=== PATIENT | female | born 1965 | race Caucasian/White ===

== ENCOUNTER 2021-11-04 21:15 | Emergency (ER) | payer OTHER, SELFPAY ==
[2021-11-04 21:22] VITALS: BP 163/95; PULSE 76; RESP 16; TEMP 36.4; O2SAT 96
--- NOTE | 2021-11-04 21:36 | ED.DENTAL ---
HPI - Dental/Oral General Chief complaint: Dental/Oral Stated complaint: dental abscess Time Seen by Provider: 11/04/21 21:24 History of Present Illness HPI Narrative: 56-year-old female presents emergency room complaining of left lower molar and canine dental tenderness. Pain is associated with perimandibular swelling. States the dental pain has been present for about a week. Does not have a dentist. Denies fever. Denies difficulty swallowing or difficulty breathing. Related Data Allergies Allergy/AdvReac Type Severity Reaction Status Date / Time No Known Allergies Allergy Mild Verified 04/30/09 14:13 Review of Systems Review of Systems: CONSTITUTIONAL: Denies fever, chills, or sweats. EYES: Denies visual changes, redness, or discharge. ENT: Reports dental pain CARDIOVASCULAR: Denies chest pain, palpitations, or edema. RESPIRATORY: Denies cough or dyspnea. GASTROINTESTINAL: Denies abdominal pain, nausea, vomiting, or diarrhea. GENITOURINARY: Denies dysuria or hematuria. SKIN: Denies rash or itching. MUSCULOSKELETAL: Denies back pain, joint pain, or myalgia. NEUROLOGIC: Denies headache, numbness, dizziness, or weakness. PSYCHIATRIC: Denies anxiety or depression. Course Course Emergency Course: GENERAL: Well-appearing, well-nourished, no physical limitations, and in no acute distress. HEAD: Normocephalic, atraumatic. EYES: Conjunctivae normal, PERRLA and EOMI. ENT: Tenderness to the left first molar and canine. Extensive periodontal disease and cavities. Perimandibular swelling left side. No trismus NECK: Supple. No adenopathy or masses. CHEST: Clear to auscultation. No respiratory distress. No wheezes rales or rhonchi. No tenderness. HEART: Regular rate and rhythm. No murmur heard. Normal peripheral pulses. EXTREMITIES: Normal range of motion. No edema. No clubbing or cyanosis SKIN: Warm, dry, no rash. No noted wounds NEURO: No focal deficits. Alert and oriented x3. MAEW. CN's II-XI intact bilaterally, normal gait PSYCH: Cooperative. Normal mood and affect. Vital Signs Vital signs: Vital Signs Temperature 36.4 C 11/04/21 21:22 Pulse Rate 76 11/04/21 21:22 Respiratory Rate 16 11/04/21 21:22 Blood Pressure 163/95 H 09/18/22 21:22 Pulse Oximetry 96 11/04/21 21:22 Oxygen Delivery Room Air 11/04/21 21:22 Temperature 36.4 C 11/04/21 21:22 Pulse Rate 76 11/04/21 21:22 Respiratory Rate 16 11/04/21 21:22 Blood Pressure 163/95 H 11/04/21 21:22 Pulse Oximetry 96 11/04/21 21:22 Oxygen Delivery Room Air 11/04/21 21:22 Procedures Nerve Block Nerve Block 1: Nerve block date: 11/04/21 Nerve block time: 22:02 Time out performed: Yes Local Anesthetic: bupivacaine 0.25% and with epi Amount of anesthesia used (mL): 3 Side: left Intraoral Nerve Block: inferior alveolar Procedure Successful: Yes Patient Tolerated Procedure: well Complications: none Discharge Plan Discharge Clinical Impression: Dental abscess, Toothache Patient Disposition: Home, Self-Care Condition: Stable Instructions: Antibiotic Form, Toothache (ED) Prescriptions: New amoxicillin-pot clavulanate 875-125 mg tablet 1 tablet PO Q12H 7 Days Qty: 14 0RF ibuprofen 800 mg tablet 800 mg PO TID Qty: 20 0RF Follow-up/Referrals: PHYSICIAN NOT ON STAFF,NONSTAFF [Primary Care Provider] - Stand Alone Forms: Work/School Release IP Time of Disposition: 21:39
[2021-11-04] MEDS: AMOXICILLIN/CLAVULANATE K 875-125 MG TAB 1 TABLET PO (21:37)
[2021-11-04 22:37] VITALS: BP 132/80; PULSE 86; RESP 16; TEMP 36.3; O2SAT 100
== END 2021-11-04 22:39 | disposition home or self-care (01) ==
LOC: ANHED 21:53
PROVIDERS: Emergency Provider Nurse Practitioner Family
DX: K04.7 Periapical abscess without sinus (principal)
CPT/HCPCS: 64999; 99283; A9270

== ENCOUNTER 2022-05-23 06:23 | Emergency (ER) | payer OTHER, SELFPAY ==
--- NOTE | ~2022-05-23 | XR_ITS ---
EXAMINATION: XR chest 2V DATE: 05/23/2022 10:02 INDICATION: Shortness of breath. Cough. TECHNIQUE: Frontal and lateral views of the chest were obtained. COMPARISON: None. FINDINGS: There are lucencies in the lungs, consistent with emphysema. No pneumonia, pleural effusion , or pneumothorax. The heart size is normal. IMPRESSION: 1. Emphysema. Reviewed, dictated and finalized at location A. IMPRESSION: 1. Emphysema.
[2022-05-23 06:26] VITALS: BP 176/88; PULSE 83; RESP 20; TEMP 36.9; O2SAT 96
--- NOTE | 2022-05-23 08:01 | ED.GENADULT ---
HPI - General Adult General Chief complaint: Upper Respiratory Infection Stated complaint: upper resp infection Time Seen by Provider: 05/23/22 06:55 History of Present Illness HPI narrative: 67-year-old female presenting to the emergency department for evaluation of flulike symptoms that have been ongoing since Friday. Patient denies cough congestion and fever. Patient states she is not vaccinated against COVID or influenza. Patient suspected she had the flu. Patient denies any associated chest pain Related Data Allergies Allergy/AdvReac Type Severity Reaction Status Date / Time No Known Allergies Allergy Mild Verified 05/23/22 08:40 Review of Systems Review of Systems: All systems reviewed & are unremarkable except as noted in HPI and below Exam Narrative: APPEARANCE: Well appearing, no pain, no distress, well-nourished. HEAD: normocephalic, atraumatic. EYES: PERRLA/EOMI, conjunctivae clear. NOSE: Normal no drainage EARS:TMS clear with good light reflex. THROAT: Pharynx clear, no exudate. NECK: Supple. No adenopathy, no masses. RESPIRATORY: Airway patent, respirations nonlabored. Clear to auscultation bilaterally, no rales, rhonchi, wheezing. CARDIOVASCULAR: Regular rate and rhythm without murmurs rubs or gallops. ABDOMINAL: Soft, nontender, nondistended, normal bowel sounds MUSCULOSKELETAL: Moves all extremities. Strength/ROM intact, No edema, No calf tenderness. NEURO: Alert. Cranial nerves II through XII intact. SKIN: Warm, dry. Normal Color Course Course Emergency Course: 57-year-old female presenting for evaluation of cough. Patient was negative for influenza flu and COVID. Chest x-ray showed no evidence of any acute bacterial infection. Patient's lungs were clear to auscultation. Patient does have history of emphysema and does continue to smoke. Patient's symptoms only started 2 days ago. Suspect viral etiology. Patient was updated on the plan to not treat her with antibiotics. Patient was provided a prescription for additional albuterol inhaler along with a prescription for Tessalon Perles for cough suppression. All questions and concerns were addressed. Patient was comfortable with the plan for discharge and close follow-up. Patient was also educated on reasons to return to the emergency department and also on the importance of close follow-up with her primary care physician Vital Signs Vital signs: Vital Signs Temperature 98.5 F 05/23/22 06:26 Pulse Rate 83 05/23/22 06:26 Respiratory Rate 20 05/23/22 06:26 Blood Pressure 176/88 H 05/23/22 06:26 Pulse Oximetry 96 05/23/22 06:26 Temperature 98.5 F 05/23/22 06:26 Pulse Rate 83 05/23/22 06:26 Respiratory Rate 20 05/23/22 06:26 Blood Pressure 176/88 H 05/23/22 06:26 Pulse Oximetry 96 05/23/22 06:26 Medical Decision Making Vital Signs Vital Signs: Vital Signs Temperature 98.5 F 05/23/22 06:26 Pulse Rate 83 05/23/22 06:26 Respiratory Rate 20 05/23/22 06:26 Blood Pressure 176/88 H 05/23/22 06:26 Pulse Oximetry 96 05/23/22 06:26 Temperature 98.5 F 05/23/22 06:26 Pulse Rate 83 05/23/22 06:26 Respiratory Rate 20 05/23/22 06:26 Blood Pressure 176/88 H 05/23/22 06:26 Pulse Oximetry 96 05/23/22 06:26 Lab Data Lab results reviewed: Yes I reviewed the patient's lab results. Labs: Lab Results 05/23/22 Range/Units 07:26 Influenza A (RT-PCR) Negative (Negative) Influenza B (RT-PCR) Negative (Negative) RSV (RT-PCR) Negative (Negative) SARS-CoV-2 RNA (RT-PCR) Negative Imaging Data Radiologist's impression: Impressions Chest X-Ray 05/23/22 10:04 IMPRESSION: 1. Emphysema. Discharge Plan Discharge Clinical Impression: Viral infection Patient Disposition: Home, Self-Care Condition: Stable Instructions: Antibiotic Form, Viral Syndrome (ED) Additional Instructions: Tylenol or Profen for pain control. Albuterol inh
[2022-05-23 08:30] LABS: Influenza A QL RT-PCR Negative (Negative); Influenza B QL RT-PCR Negative (Negative); RSV RNA, RT-PCR Negative (Negative); SARS-CoV-2 RNA PCR Negative
== END 2022-05-23 10:55 | disposition home or self-care (01) ==
PROVIDERS: Emergency Provider Emergency Medicine
DX: B34.9 Viral infection, unspecified (principal); Z20.822 Contact with and (suspected) exposure to COVID-19
CPT/HCPCS: 71046; 87637; 99283

== ENCOUNTER 2023-04-21 21:54 | Emergency (ER) | payer OTHER, SELFPAY ==
--- NOTE | ~2023-04-21 | CT_ITS ---
EXAMINATION: CT facial bones w con DATE: 04/22/2023 04:32 INDICATION: Left facial swelling. TECHNIQUE: Computed tomography (CT) of the facial bones and maxillofacial region was performed with 7 5 mL Omnipaque 350 intravenous contrast. Automated exposure control and iterative reconstruction tech [employer] were employed. The dose-length product was 311.14 mGy-cm. COMPARISON: CT maxillofacial 04/30/2009 FINDINGS: There is mild mucosal thickening in the paranasal sinuses. The orbits are normal. There is rightward deviation of the nasal septum. Two right maxillary molars are broken with periapical lucenc ies. There is a carious lesion of a left mandibular premolar with periapical lucencies and 6 x 2 mm s ubperiosteal abscess and left lower face soft tissue swelling. There are carious lesions of multiple maxillary teeth. IMPRESSION: 1. Dental disease with subperiosteal abscess adjacent to a left mandibular premolar. Reviewed, dictated and finalized at location E. [employer] CONSULTANT IMPRESSION: 1. Dental disease with subperiosteal abscess adjacent to a left mandibular keith olar.
[2023-04-21 22:03] VITALS: PULSE 93; RESP 18; TEMP 36.7; O2SAT 96
[2023-04-21 22:06] VITALS: BP 181/100
--- NOTE | 2023-04-22 02:23 | ED.DENTAL ---
HPI - Dental/Oral General Chief complaint: Dental/Oral <DARIELA Mcmahon Last Filed: 04/23/23 09:24> Stated complaint: L sided face swelling, pain <DARIELA Mcmahon Last Filed: 04/23/23 09:24> Time Seen by Provider: 04/22/23 02:16 <DARIELA Mcmahon Last Filed: 04/23/23 09:24> Source: patient <DARIELA Mcmahon Last Filed: 04/23/23 09:24> Mode of arrival: ambulatory <DARIELA Mcmahon Last Filed: 04/23/23 09:24> Limitations: no limitations <DARIELA Mcmahon Last Filed: 04/23/23 09:24> History of Present Illness HPI Narrative: This is a 58 year old female that presents to the ER for left sided facial swelling/dental pain. Ongoing since last night. Reports associated fevers. Denies dysphagia or dyspnea. <DARIELA Mcmahon Last Filed: 04/23/23 09:24> Related Data Allergies/adverse reactions: Allergies Allergy/AdvReac Type Severity Reaction Status Date / Time No Known Allergies Allergy Mild Verified 04/22/23 02:52 <Lorna Viera PA-C - Last Filed: 04/23/23 09:24> Review of Systems Review of Systems: CONSTITUTIONAL: Denies fever ENT: Reports dentalgia <DARIELA Mcmahon Last Filed: 04/23/23 09:24> All systems reviewed & are unremarkable except as noted in HPI and below <DARIELA Mcmahon Last Filed: 04/23/23 09:24> PMFSH Past Medical History Medical History: Medical History History of hyperlipidemia <DARIELA Mcmahon Last Filed: 04/23/23 09:24> Social History Social History: Social History Smoking status: Current every day smoker <DARIELA Mcmahon Last Filed: 04/23/23 09:24> Exam Narrative: GENERAL: Well-appearing, well-nourished, and in no acute distress. HEAD: Normocephalic, atraumatic. EYES: EOMI. ENT: Nares clear, no rhinorrhea or epistaxis. Mucous membranes moist. Oropharynx without tonsillar hypertrophy exudate or other lesions. No trismus. Floor of mouth is soft. Left sided facial swelling about the jaw NECK: Supple. Left sided anterior cervical adenopathy CHEST: Clear to auscultation. No respiratory distress. No wheezes rales or rhonchi HEART: Regular rate and rhythm. No murmur heard. Normal peripheral pulses. EXTREMITIES: Normal range of motion. No edema. SKIN: Warm, dry, no rash. NEURO: No focal deficits. Alert and oriented x3. PSYCH: Normal mood and affect <DARIELA Mcmahon Last Filed: 04/23/23 09:24> Course Course Emergency Course: Patient updated on workup thus far. Care taken over by Dr. Miller at shift change pending CT facial bone results <DARIELA Mcmahon Last Filed: 04/23/23 09:24> Vital Signs Vital signs: Vital Signs Temperature 98.1 F 04/21/23 22:03 Pulse Rate 93 04/21/23 22:03 Respiratory Rate 18 04/21/23 22:03 Pulse Oximetry 96 04/21/23 22:03 Oxygen Delivery Room Air 04/21/23 22:03 Temperature 98.1 F 04/21/23 22:03 Pulse Rate 68 04/22/23 05:02 Respiratory Rate 16 04/22/23 05:02 Blood Pressure 181/82 H 04/22/23 05:02 Pulse Oximetry 94 04/22/23 05:02 Oxygen Delivery Room Air 04/21/23 22:03 <DARIELA Mcmahon Last Filed: 04/23/23 09:24> Vital Signs Temperature 98.1 F 04/21/23 22:03 Pulse Rate 93 04/21/23 22:03 Respiratory Rate 18 04/21/23 22:03 Pulse Oximetry 96 04/21/23 22:03 Oxygen Delivery Room Air 04/21/23 22:03 Temperature 98.1 F 04/21/23 22:03 Pulse Rate 68 04/22/23 05:02 Respiratory Rate 16 04/22/23 05:02 Blood Pressure 181/82 H 04/22/23 05:02 Pulse Oximetry 94 04/22/23 05:02 Oxygen Delivery Room Air 04/21/23 22:03 <Maria Esther Miller MD - Last Filed: 04/22/23 06:01> MDM - Dental/Oral MDM Narrative Medical decision making narrative: Presents to the emergency department for left-sided de
[2023-04-22] MEDS: HYDROcodone/acetaminophen (*CRX) 5-325 MG TABLET 1 TAB PO (02:49)
[2023-04-22] MEDS: ACETAMINOPHEN 325 MG TABLET 650 MG PO (02:50)
[2023-04-22 03:11] LABS: Basophils Absolute Auto 0.1 K/mm3 (0.0-0.1); Basophils Percent Auto 0.5 % (0.2-1.2); Eosinophils Absolute Auto 0.7 K/mm3 (0-0.3); Eosinophils Percent Auto 4.9 % (0-4.4); Hematocrit 48.9 % (37.0-47.0); Hemoglobin 16.2 g/dL (12.0-15.0); Immature Granulocyte Absolute 0.05 K/mm3 (0.00-0.031); Immature Granulocyte Percent A 0.3 % (0-0.5); Lymphocytes Absolute Auto 3.34 K/mm3 (0.9-3.2); Lymphocytes Percent Auto 22.6 % (18.3-44.2); Mean Corpuscular HGB Conc 33.1 g/dl (32-36); Mean Corpuscular Hemoglobin 31.4 pg (26-34); Mean Corpuscular Volume 94.8 fl (80-100); Mean Platelet Volume 10.6 fl (7.4-10.4); Monocytes Absolute Auto 1.2 K/mm3 (0.1-0.6); Monocytes Percent Auto 7.8 % (2.6-8.5); Neutrophils Absolute Auto 9.4 K/mm3 (1.3-6.7); Neutrophils Percent Auto 63.9 % (45.5-73.1); Platelet Count Result 270 k/mm3 (150-375); Red Blood Count 5.16 M/mm3 (4.2-5.4); Red Cell Distribution Width 12.9 % (11.5-14.5); White Blood Count 14.8 K/mm3 (4.5-10.0)
[2023-04-22 03:40] LABS: Alanine Aminotransferase 20 U/L (6-35); Albumin Level 4.4 g/dL (3.5-5.1); Alkaline Phosphatase 85 U/L (38-126); Anion Gap 8 mmol/L (8-16); Aspartate Amino Transferase 34 U/L (14-36); Bilirubin,Total 0.5 mg/dL (0.2-1.3); Blood Urea Nitrogen 14 mg/dL (7-17); Calcium 9.2 mg/dL (8.4-10.2); Carbon Dioxide 28 mmol/L (22-30); Chloride 105 mmol/L (98-107); Estimated CRCL calculation 48 ml/min; Estimated Glomerular Filt Rate > 60; Glucose 117 mg/dL (65-110); Potassium 4.1 mmol/L (3.4-5.0); Sodium 141 mmol/L (137-145)
[2023-04-22 03:49] LABS: Erythrocyte Sedimentation Rate 13 mm/hr (0-20)
[2023-04-22] MEDS: SODIUM CHLORIDE 0.9% IV 500 ML 999 ML IV CONT (04:16)
[2023-04-22 05:02] VITALS: BP 181/82; PULSE 68; RESP 16; O2SAT 94
== END 2023-04-22 06:09 | disposition home or self-care (01) ==
PROVIDERS: Physician Assistant; Emergency Provider Emergency Medicine
DX: K04.7 Periapical abscess without sinus (principal); K02.9 Dental caries, unspecified; E78.5 Hyperlipidemia, unspecified
CPT/HCPCS: 36415; 70487; 80053; 85025; 85652; 86140; 99284; A9270; J7040; Q9967

== ENCOUNTER 2023-09-22 09:15 | Emergency (ER) | payer OTHER, SELFPAY ==
--- NOTE | ~2023-09-22 | XR_ITS ---
XR chest 2V Ordering provider: Jyoti Sawant PA-C History: 58 years Female with . sob, cough . Comparison: May 23, 2022 FINDINGS: MEDIASTINUM: The cardiac silhouette is not enlarged. LUNGS: No infiltrates, effusions or pneumothorax. Slightly prominent markings in the lower lobes. Minimal interstitial changes bilaterally. OTHER: No free air under the diaphragm. IMPRESSION: Slightly prominent markings in the lower lobes. Minimal interstitial changes bilaterally. Pneumonitis cannot be excluded. Follow-up advised. Reviewed, dictated and finalized at location A. IMPRESSION: Slightly prominent markings in the lower lobes. Minimal interstitial changes bi laterally. Pneumonitis cannot be excluded. Follow-up advised.
[2023-09-22 09:30] VITALS: BP 158/100; PULSE 84; RESP 17; TEMP 36.4; O2SAT 97
--- NOTE | 2023-09-22 09:32 | ECG_ITS ---
Test Date: 2023-09-22 10:38:01 Measurements Intervals [place] Rate: 77 P: 63 MT: 129 QRS: 24 QRSD: 92 T: 20 QT: 391 QTc: 445 Interpretive Statements SINUS RHYTHM WITHIN NORMAL LIMITS No previous ECG available for comparison Electronically Signed On 09-22-2023 17:12:19 CDT by Cornelio Coats M.D.
[2023-09-22 10:05] VITALS: PULSE 78; O2SAT 95
[2023-09-22 10:08] VITALS: BP 161/113; PULSE 77; RESP 18; O2SAT 96
[2023-09-22 10:15] LABS: Basophils Percent Auto 0.3 % (0.2-1.2); Eosinophils Absolute Auto 0.3 K/mm3 (0-0.3); Eosinophils Percent Auto 2.1 % (0-4.4); Hematocrit 49.2 % (37.0-47.0); Hemoglobin 16.3 g/dL (12.0-15.0); Immature Granulocyte Absolute 0.05 K/mm3 (0.00-0.031); Immature Granulocyte Percent A 0.4 % (0-0.5); Lymphocytes Absolute Auto 2.75 K/mm3 (0.9-3.2); Lymphocytes Percent Auto 23.1 % (18.3-44.2); Mean Corpuscular HGB Conc 33.1 g/dl (32-36); Mean Corpuscular Hemoglobin 32.2 pg (26-34); Mean Corpuscular Volume 97.2 fl (80-100); Mean Platelet Volume 10.6 fl (7.4-10.4); Monocytes Absolute Auto 0.7 K/mm3 (0.1-0.6); Monocytes Percent Auto 5.9 % (2.6-8.5); Neutrophils Absolute Auto 8.1 K/mm3 (1.3-6.7); Neutrophils Percent Auto 68.2 % (45.5-73.1); Platelet Count Result 264 k/mm3 (150-375); Red Blood Count 5.06 M/mm3 (4.2-5.4); Red Cell Distribution Width 12.7 % (11.5-14.5); White Blood Count 11.9 K/mm3 (4.5-10.0)
[2023-09-22 10:25] LABS: Lactic Acid Reflex 1.5 mmol/L (0.7-2.0)
--- NOTE | 2023-09-22 10:25 | ED.SOB ---
HPI - SOB/Dyspnea General Chief Complaint: Shortness of Breath/Dyspnea Stated Complaint: PNEUMONIA Time Seen by Provider: 09/22/23 09:32 Source: patient Mode of arrival: ambulatory Limitations: no limitations History of Present Illness HPI Narrative: Patient is a 58-year-old female who presents the ED with report of cough and shortness of breath. Patient reports she has been ill since Friday with a productive cough with yellow phlegm, subjective fevers, chills, diaphoresis, shortness of breath. States her family member has been sick with similar symptoms and has been diagnosed with pneumonia. Reports history of COPD, has been using her inhalers and nebulizers at home without improvement of breathing. Does admit to feeling short of breath. Denies chest pain. Denies lower extremity pain or swelling. Related Data Allergies Allergy/AdvReac Type Severity Reaction Status Date / Time No Known Allergies Allergy Mild Verified 04/22/23 02:52 Review of Systems Review of Systems: CONSTITUTIONAL: See HPI. ENT: Denies rhinorrhea, congestion, sore throat. CARDIOVASCULAR: Denies chest pain, palpitations, or edema. RESPIRATORY: See HPI GASTROINTESTINAL: Denies abdominal pain, nausea, vomiting All systems reviewed & are unremarkable except as noted in HPI and below PMFSH Past Medical History Medical History COPD (chronic obstructive pulmonary disease) History of hyperlipidemia Social History Social History Smoking status: Current every day smoker Exam Narrative: GENERAL: Well appearing, well-nourished, non-toxic, in no acute distress. HEAD: Normocephalic, atraumatic. RESPIRATORY: Airway patent, respirations nonlabored. Rhonchi throughout bases bilaterally. No wheezing. Occasional coughing on exam. CARDIOVASCULAR: Regular rate and rhythm without murmurs, rubs, or gallops. Peripheral pulses intact. MUSCULOSKELETAL: Moves all extremities. No gross deformities. No lower extremity edema. No calf tenderness. SKIN: Warm, dry, normal color. NEURO: A&O X3. Speech clear. Cranial nerves II-XII grossly intact. Steady gait. No ataxic movements. PSYCHIATRIC: Appropriate mood and affect. Normal interaction. Course Vital Signs Vital signs: Vital Signs Temperature 97.5 F L 09/22/23 09:30 Pulse Rate 84 09/22/23 09:30 Respiratory Rate 17 09/22/23 09:30 Blood Pressure 158/100 H 09/22/23 09:30 Pulse Oximetry 97 09/22/23 09:30 Oxygen Delivery Room Air 09/22/23 09:30 Temperature 97.5 F L 09/22/23 09:30 Pulse Rate 77 09/22/23 10:08 Respiratory Rate 18 09/22/23 10:08 Blood Pressure 161/113 H 09/22/23 10:08 Pulse Oximetry 96 09/22/23 10:08 Oxygen Delivery Room Air 09/22/23 10:05 MDM - SOB/Dyspnea MDM Narrative Medical decision making narrative: Patient presented to ED with several day history of subjective fevers, productive cough, shortness of breath, history of COPD. Recent exposure to family member with pneumonia. VSS upon arrival. Afebrile. CBC with white blood cell count of 11.9. Stable H&H. CMP unremarkable. Lactic acid within normal limits. EKG with sinus rhythm, some baseline artifact, no significant ST changes. Troponin is undetectable. Patient denies CP. BNP is mildly elevated to 807, the patient does not appear acutely fluid overloaded. She does report history of CHF in the past. No lower extremity swelling. No signs or symptoms to suggest PE. No tachycardia, hypoxia, ambulatory hypoxia, evidence of DVT. Low risk Wells score. Patient is also already anticoagulated on Eliquis, hx of CVA, and is compliant with this. Low suspicion for PE. Chest x-ray with possible pneumonia changes, minimal interstitial changes. Given leukocytosis, productive cough, history of COPD, will treat for pneumonia with antibiotics, will also cover for COPD exacerbat
[2023-09-22 10:26] LABS: Alanine Aminotransferase 12 U/L (6-35); Alkaline Phosphatase 63 U/L (38-126); Anion Gap 7 mmol/L (4-12); Aspartate Amino Transferase 17 U/L (14-36); Bilirubin,Total 0.4 mg/dL (0.2-1.3); Blood Urea Nitrogen 10 mg/dL (7-17); Calcium 8.7 mg/dL (8.4-10.2); Carbon Dioxide 29 mmol/L (22-30); Chloride 103 mmol/L (98-107); Estimated CRCL calculation 61 ml/min; Estimated Glomerular Filt Rate > 60; Glucose 103 mg/dL (65-110); INR 1.1; Potassium 3.9 mmol/L (3.4-5.0); Prothrombin Time 14.9 Seconds (11.1-14.7); Sodium 139 mmol/L (137-145)
[2023-09-22 10:27] LABS: Partial Thromboplastin Time 30.3 Seconds (22.3-36.8)
[2023-09-22] MEDS: methylPREDNISolone SOD SUCC 125 MG VIAL IV PUSH (10:39)
[2023-09-22 10:40] LABS: Troponin I < 0.012 ng/mL (0.000-0.034)
[2023-09-22 10:50] LABS: Influenza A QL RT-PCR Negative (Negative); Influenza B QL RT-PCR Negative (Negative); RSV RNA, RT-PCR Negative (Negative); SARS-CoV-2 RNA PCR Negative (Negative)
[2023-09-22 10:53] LABS: NT Pro B Type Natriuretic Pept 807 pg/mL (19.9-100)
[2023-09-22 11:31] VITALS: BP 171/86; PULSE 81; RESP 20; O2SAT 96
== END 2023-09-22 11:32 | disposition home or self-care (01) ==
PROVIDERS: Emergency Provider Physician Assistant
DX: J18.9 Pneumonia, unspecified organism (principal); J06.9 Acute upper respiratory infection, unspecified; J44.1 Chronic obstructive pulmonary disease with (acute) exacerbation; Z20.822 Contact with and (suspected) exposure to COVID-19; E78.5 Hyperlipidemia, unspecified
CPT/HCPCS: 36415; 71046; 80053; 83605; 83880; 84484; 85025; 85610; 85730; 87637; 93005; 96374; 99284; J2919

== ENCOUNTER 2023-09-28 21:37 | Emergency (ER) | payer OTHER, SELFPAY ==
--- NOTE | ~2023-09-28 | XR_ITS ---
EXAMINATION: XR chest 2V DATE: 09/28/2023 22:17 INDICATION: Cough and shortness of breath. TECHNIQUE: Frontal and lateral views of the chest were obtained. COMPARISON: Chest 2 views 09/22/2023 FINDINGS: There are mild airspace opacities in the midlung zones. No pleural effusion or pneumothorax . The heart size is normal. IMPRESSION: 1. Mild airspace opacities in the midlung zones, consistent with pneumonia. Reviewed, dictated and finalized at location A.
[2023-09-28 21:45] VITALS: BP 162/106; PULSE 100; RESP 20; TEMP 36.3; O2SAT 96
--- NOTE | 2023-09-28 21:52 | ECG_ITS ---
Test Date: 2023-09-28 21:59:42 Measurements Intervals [place] Rate: 101 P: 66 NH: 141 QRS: 52 QRSD: 91 T: 18 QT: 356 QTc: 462 Interpretive Statements SINUS TACHYCARDIA VOLTAGE CRITERIA FOR LVH [MEETS CRITERIA IN ONE OF: R(aVL), S(V1), R(V5), R(V5/V6)+S(V1)] NONSPECIFIC ST & T-WAVE ABNORMALITY BORDERLINE ECG Compared to ECG 09/22/2023 10:38:01 NO SIGNIFICANT CHANGE, THIS TRACING IS MORE SUGGESTIVE OF LEFT VENTRICULAR HYPERTROPHY Electronically Signed On 09-29-2023 12:25:56 CDT by Cornelio Coats M.D.
[2023-09-28 22:41] LABS: Influenza A QL RT-PCR Negative (Negative); Influenza B QL RT-PCR Negative (Negative); RSV RNA, RT-PCR Negative (Negative); SARS-CoV-2 RNA PCR Negative (Negative)
[2023-09-29] VITALS (18 sets, daily range): BP systolic 155–187; BP diastolic 80–107; PULSE 63–94; RESP 16–26; TEMP 36.8; O2SAT 91–99
[2023-09-29] MEDS: IPRATROPIUM 0.5 MG/ALBUTEROL SULFATE 2.5 MG AMPUL.NEB 3 ML INHALATION ×3 (00:10→00:55)
--- NOTE | 2023-09-29 00:10 | ED.SOB ---
HPI - SOB/Dyspnea General Chief Complaint: Shortness of Breath/Dyspnea <Jenny Wilson PA-C - Last Filed: 09/29/23 03:05> Stated Complaint: shortness of breath <Jenny Wilson PA-C - Last Filed: 09/29/23 03:05> Time Seen by Provider: 09/28/23 23:57 <Jenny Wilson PA-C - Last Filed: 09/29/23 03:05> History of Present Illness HPI Narrative: 58-year-old female with a history of hyperlipidemia and COPD presents to the emergency department for shortness of breath for 1 week. Patient is reporting a productive cough, wheezing, generalized malaise, And nausea. She was seen in our emergency department on 09/21 for the same presentation. She was diagnosed with COPD exacerbation with possible pneumonia and sent home with doxycycline, prednisone, Augmentin and benzonatate. Patient states she was feeling somewhat better however symptoms started again yesterday and became worse. She states she has not been using any nebulizers or inhalers at home. Denies known fever, vomiting, abdominal pain. She is reporting chest tightness throughout the anterior aspect of her chest. She is chronically anticoagulated on Eliquis which she has been taking as directed. Patient states she has finished her course of steroids but is still taking her Augmentin and doxycycline. Pt still smoking 1ppd. <Jenny Wilson PA-C - Last Filed: 09/29/23 03:05> Related Data Allergies/Adverse Reactions: Allergies Allergy/AdvReac Type Severity Reaction Status Date / Time No Known Allergies Allergy Mild Verified 09/29/23 00:29 <Jenny Wilson PA-C - Last Filed: 09/29/23 03:05> Review of Systems Review of Systems: All systems reviewed & are unremarkable except as noted in HPI and below <Jenny Wilson PA-C - Last Filed: 09/29/23 03:05> [facility] Past Medical History Medical History: Medical History COPD (chronic obstructive pulmonary disease) History of hyperlipidemia <Jenny Wilson PA-C - Last Filed: 09/29/23 03:05> Social History Social History: Social History Smoking status: Current every day smoker <Jenny Wilson PA-C - Last Filed: 09/29/23 03:05> Exam Narrative: GENERAL: Well-appearing, well-nourished, and in no acute distress. HEAD: Normocephalic, atraumatic. EYES: PERRLA and EOMI. ENT: Nares clear, no rhinorrhea or epistaxis. Mucous membranes moist. NECK: Supple. CHEST: expiratory wheezing throughout all lung millard. Satting 95% on room air in no respiratory distress HEART: Regular rate and rhythm. No murmur heard. Normal peripheral pulses. ABDOMEN: Soft, nontender, nondistended, normal active bowel sounds. EXTREMITIES: Normal range of motion. No edema. SKIN: Warm, dry, no rash. NEURO: No focal deficits. Alert and oriented x3 <Jenny Wilson PA-C - Last Filed: 09/29/23 03:05> Course ACADEMIC ADMINISTRATOR/PA Physician Supervision I agree with midlevel documentation; I performed the medical decision making component of this evaluation. <Sahara Saavedra MD - Last Filed: 09/29/23 04:54> Vital Signs Vital signs: Vital Signs Temperature 97.4 F L 09/28/23 21:45 Pulse Rate 100 09/28/23 21:45 Respiratory Rate 20 09/28/23 21:45 Blood Pressure 162/106 H 09/28/23 21:45 Pulse Oximetry 96 09/28/23 21:45 Oxygen Delivery Room Air 09/28/23 21:45 Temperature 98.2 F 09/29/23 03:12 Pulse Rate 90 09/29/23 03:12 Respiratory Rate 20 09/29/23 03:12 Blood Pressure 172/80 H 09/29/23 03:12 Pulse Oximetry 93 09/29/23 03:12 Oxygen Delivery Room Air 09/29/23 02:28 Oxygen Flow Rate 2 09/29/23 02:06 <Jenny Wilson PA-C - Last Filed: 09/29/23 03:05> Vital Signs Temperature 97.4 F L 09/28/23 21:45 Pulse Rate 100 09/28/23 21:45 Respiratory Rate 20 09/28/23 21:45 Blood Pressure 162/106 H 09/28/23 21:45 Pulse Oximetry 96 08
[2023-09-29] MEDS: methylPREDNISolone SOD SUCC 125 MG VIAL IV PUSH (00:29)
[2023-09-29 00:34] LABS: Basophils Absolute Auto 0.1 K/mm3 (0.0-0.1); Basophils Percent Auto 0.5 % (0.2-1.2); Eosinophils Absolute Auto 0.3 K/mm3 (0-0.3); Eosinophils Percent Auto 1.5 % (0-4.4); Hematocrit 50.6 % (37.0-47.0); Immature Granulocyte Absolute 0.09 K/mm3 (0.00-0.031); Immature Granulocyte Percent A 0.5 % (0-0.5); Lymphocytes Percent Auto 31.3 % (18.3-44.2); Mean Corpuscular HGB Conc 33.6 g/dl (32-36); Mean Corpuscular Hemoglobin 31.9 pg (26-34); Mean Corpuscular Volume 94.9 fl (80-100); Mean Platelet Volume 10.4 fl (7.4-10.4); Monocytes Percent Auto 6.1 % (2.6-8.5); Neutrophils Percent Auto 60.1 % (45.5-73.1); Platelet Count Result 267 k/mm3 (150-375); Red Blood Count 5.33 M/mm3 (4.2-5.4); Red Cell Distribution Width 12.7 % (11.5-14.5); White Blood Count 16.6 K/mm3 (4.5-10.0)
[2023-09-29 00:35] LABS: Alveolar/Arterial O2 Gradient 38.5 mmHg; Base Excess ABG 0.3 mEq/l (+/-2.0); Device ROOM AIR; Fractional Inspired Oxygen 21 %; HCO3 ABG 24.3 mEq/l (22.0-26.0); Oxygen Content ABG 21.9 %vol (16.0-22.0); Oxygen Saturation ABG 93.6 % (95.0-100.0); Oxyhemoglobin 88.8 % THb (90.0-100.0); PCO2 ABG 37.8 mmHg (35.0-45.0); PO2 FiO2 Ratio Arterial Blood 3.14 %; Site Drawn RIGHT BRACHIAL; Total Hemoglobin 17.6 g/dL (12.0-18.0); pH ABG 7.426 (7.350-7.450)
[2023-09-29 00:43] LABS: Partial Thromboplastin Time 28.1 Seconds (22.3-36.8); Prothrombin Time 13.5 Seconds (11.1-14.7)
[2023-09-29 00:48] LABS: Alanine Aminotransferase 16 U/L (6-35); Albumin Level 3.9 g/dL (3.5-5.1); Alkaline Phosphatase 66 U/L (38-126); Anion Gap 8 mmol/L (4-12); Aspartate Amino Transferase 18 U/L (14-36); Bilirubin,Total 0.5 mg/dL (0.2-1.3); Blood Urea Nitrogen 11 mg/dL (7-17); Calcium 8.9 mg/dL (8.4-10.2); Carbon Dioxide 30 mmol/L (22-30); Chloride 98 mmol/L (98-107); Estimated CRCL calculation 70 ml/min; Estimated Glomerular Filt Rate > 60; Glucose 95 mg/dL (65-110); Magnesium 2.3 mg/dL (1.6-2.3); Potassium 3.7 mmol/L (3.4-5.0); Sodium 136 mmol/L (137-145)
[2023-09-29 00:53] LABS: Anisocytosis 1+; Atypical Lymphocytes Present; Schistocytes None Seen
[2023-09-29 00:59] LABS: NT Pro B Type Natriuretic Pept 2690 pg/mL (19.9-100); Troponin I < 0.012 ng/mL (0.000-0.034)
[2023-09-29 01:08] LABS: Platelet Estimate Adequate (Adequate)
[2023-09-29 02:02] LABS: Add Urine Microscopic? YES; Appearance Urine Clear (Clear); Bilirubin Urine Negative (Negative); Blood Urine Negative (Negative); Color Urine Yellow (Yellow); Glucose Urine UA Negative (Negative); Ketones Urine Negative (Negative); Leukocyte Esterase Ur 1+ LEU/UL (Negative); Need Manual Microscopic Reviewed; Nitrate Urine Negative (Negative); Non Pathogenic Casts 0-2; Protein Urine Negative (Negative); RBC Urine 0-2 /hpf (0-2); Specific Grav Ur 1.012 (1.001-1.035); Squamous Epithelial Cell Urine Few /hpf (Few); Urobilinogen Urine 0.2 mg/dL (<2.0); WBC Urine 0-5 /hpf (0-3)
[2023-09-29 02:05] LABS: Bacteria Urine Trace /hpf
--- NOTE | 2023-09-29 02:08 | PC.NURSE ---
PA in room with patient at this time.
--- NOTE | 2023-09-29 02:18 | PC.NURSE ---
Patient ambulated with pulse ox, O2 ranged from 90-93% while ambulating on RA. Patient did state she felt short of breath while ambulating. Patient denied any cp or lightheadedness. Patient returned back to room, and O2 sat is 93% on RA. PA notified and in room speaking with patient.
== END 2023-09-29 03:14 | disposition home or self-care (01) ==
PROVIDERS: Emergency Medicine; Emergency Provider Physician Assistant
DX: J44.1 Chronic obstructive pulmonary disease with (acute) exacerbation (principal); Z20.822 Contact with and (suspected) exposure to COVID-19; E78.5 Hyperlipidemia, unspecified; F17.200 Nicotine dependence, unspecified, uncomplicated; R00.0 Tachycardia, unspecified; R94.31 Abnormal electrocardiogram [ECG] [EKG]
CPT/HCPCS: 36415; 36600; 71046; 80053; 81001; 82805; 83735; 83880; 84484; 85025; 85610; 85730; 87637; 93005; 94640; 96374; 99284; J2919

== ENCOUNTER 2023-11-01 04:31 | Observation (INO) | payer OTHER, SELFPAY ==
[2023-11-01] VITALS (36 sets, daily range): BP systolic 94–142; BP diastolic 53–88; PULSE 48–97; RESP 12–31; TEMP 35.8–36.7; O2SAT 92–100; BMI 27.0
--- NOTE | ~2023-11-01 | CT_ITS ---
EXAMINATION: CTA neck, CTA chest DATE: 11/01/2023 11:45 INDICATION: Angioedema and superior vena cava syndrome TECHNIQUE: Computed tomographic angiography (CTA) of the neck and chest was performed with 100 mL Omn ipaque-350 intravenous contrast. Multiplanar reconstructions and maximum intensity projection 3D-warren nstructions were created by the technologist on a separate workstation. The dose-length product was 3 01.54 mGy-cm. COMPARISON: None. FINDINGS: Neck: There is minimal atherosclerotic plaque with 0% stenosis of the right carotid bulb relative to normal distal artery lumen diameter (NASCET criteria). There is no evident atherosclerotic plaque with 0% s tenosis of the left carotid bulb relative to normal distal artery lumen diameter. Bilateral vertebral arteries are codominant and patent with no evident stenosis. No significant stenosis in the intracra nial bilateral vertebral, basilar and internal carotid arteries. The orbits, paranasal sinuses and ma stoid air cells are normal. Submandibular and parotid glands are symmetric. Thyroid gland is unremark able. There are scattered normal-sized lymph nodes in the neck, no lymphadenopathy. No masses identi fied. Airway is unremarkable. Moderate lower cervical spondylosis. Chest: Moderate emphysema. Mild discoid atelectasis in the bilateral lower lobes. No pneumonia, pulmonary ed jessica, pleural effusion or pneumothorax. Heart size is normal. No pericardial effusion. Thoracic aorta is normal in caliber with no dissection. No pathologically enlarged thoracic lymphadenopathy. No sign ificant stenosis of the superior vena cava or evident venous collateralization. Small sliding-type hi atal hernia with diffuse wall thickening of the more proximal esophagus suggestive of esophagitis suc h as in the setting of reflux. Visualized upper abdomen is otherwise unremarkable. Mild to moderate t horacic spondylosis. IMPRESSION: 1. 0% stenosis of the right and left carotid bulbs relative to normal distal artery lumen diameter (N ASCET criteria). 2. Moderate emphysema. 2. Small sliding-type hiatal hernia with diffuse wall thickening of the esophagus suggestive of esoph agitis such as in the setting of reflux. Reviewed, dictated and finalized at location A. IMPRESSION: 1. 0% stenosis of the right and left carotid bulbs relative to normal distal ar mainor lumen diameter (NASCET criteria). 2. Moderate emphysema. 2. Small sliding-type hiatal hernia with diffuse wall thickening of the esophag us suggestive of esophagitis such as in the setting of reflux.
--- NOTE | ~2023-11-01 | XR_ITS ---
EXAMINATION: XR knee LT 3V, XR knee RT 3V DATE: 11/01/2023 11:27 INDICATION: Bilateral knee pain and swelling TECHNIQUE: 1. Standing AP, lateral and sunrise views of the left knee were obtained. 2. Standing AP, lateral and sunrise views of the right knee were obtained. COMPARISON: None. FINDINGS: Alignment is normal at both knees. No fracture. Joint spaces are normal at both knees. No joint effus ion/layering lipohemarthrosis. Soft tissues are unremarkable. IMPRESSION: 1. Negative bilateral knee radiographs. Reviewed, dictated and finalized at location A. IMPRESSION: 1. Negative bilateral knee radiographs.
--- NOTE | ~2023-11-01 | XR_ITS ---
EXAMINATION: XR chest 1V portable DATE: 11/01/2023 05:18 INDICATION: Congestive heart failure TECHNIQUE: frontal view of the chest was obtained. COMPARISON: Chest radiograph dated 09/28/2023 FINDINGS: The lungs are clear with no focal airspace opacities, pulmonary edema, pleural effusion or pneumothor ax. The cardiomediastinal silhouette is normal. Visualized bones and soft tissues are unremarkable. IMPRESSION: 1. No acute cardiopulmonary disease. Reviewed, dictated and finalized at location A.
--- NOTE | 2023-11-01 04:35 | ECG_ITS ---
Test Date: 2023-11-01 04:53:25 Measurements Intervals [place] Rate: 59 P: 57 MS: 131 QRS: 1 QRSD: 109 T: 59 QT: 430 QTc: 429 Interpretive Statements SINUS BRADYCARDIA BORDERLINE R WAVE PROGRESSION, ANTERIOR LEADS CONSIDER INFERIOR INFARCT, AGE INDETERMINATE BORDERLINE ST-T WAVE ABNORMALITY- ANTEROLAT/HIGH LAT LEADS ABNORMAL ECG Compared to ECG 09/28/2023 21:59:42 HEART RATE HAS DECREASED Electronically Signed On 11-01-2023 08:01:13 CDT by Ehsan Eugene D.O.
[2023-11-01 04:58] LABS: Basophils Percent Auto 0.2 % (0.2-1.2); Eosinophils Absolute Auto 0.1 K/mm3 (0-0.3); Eosinophils Percent Auto 1.2 % (0-4.4); Immature Granulocyte Absolute 0.07 K/mm3 (0.00-0.031); Immature Granulocyte Percent A 0.6 % (0-0.5); Lymphocytes Absolute Auto 4.97 K/mm3 (0.9-3.2); Lymphocytes Percent Auto 41.2 % (18.3-44.2); Mean Corpuscular HGB Conc 32.7 g/dl (32-36); Mean Corpuscular Hemoglobin 32.5 pg (26-34); Mean Corpuscular Volume 99.6 fl (80-100); Monocytes Absolute Auto 0.6 K/mm3 (0.1-0.6); Monocytes Percent Auto 5.1 % (2.6-8.5); Neutrophils Absolute Auto 6.3 K/mm3 (1.3-6.7); Neutrophils Percent Auto 51.7 % (45.5-73.1); Platelet Count Result 173 k/mm3 (150-375); Red Blood Count 4.92 M/mm3 (4.2-5.4); Red Cell Distribution Width 14.6 % (11.5-14.5); White Blood Count 12.1 K/mm3 (4.5-10.0)
--- NOTE | 2023-11-01 05:06 | ED.GENADULT ---
HPI - General Adult General Chief complaint: Unspecified Stated complaint: can't walk, swollen in places, CHF, Time Seen by Provider: 11/01/23 04:34 History of Present Illness HPI narrative: patient was recently admitted an outside hospital for CHF exacerbation and possible pericarditis(?), have been home for a day when she had to get up to go to the bathroom and had such bad pain in her knees she started crying and couldn't walk. she has chronic chest discomfort and shortness of breath. Related Data Allergies Allergy/AdvReac Type Severity Reaction Status Date / Time No Known Allergies Allergy Mild Verified 11/01/23 04:44 Review of Systems Review of Systems: All systems reviewed & are unremarkable except as noted in HPI and below PMFSH Past Medical History Medical History COPD (chronic obstructive pulmonary disease) History of hyperlipidemia Social History Social History Smoking status: Current every day smoker Exam Narrative: EXAMINATION OF ORGAN SYSTEMS/BODY AREAS: Constitutional: Vital signs per nursing GENERAL:[No acute distress, non-toxic appearing.] HEAD: Normal with no signs of head trauma. EYES: EOMI, conjunctiva normal ENT: Hearing grossly intact LUNGS: Nonlabored breathing. Mild end expiratory wheeze HEART: [Regular rate and rhythm] ABD: [Soft], [nontender to palpation] EXT: Normal range of motion SKIN: [No rashes or lesions.] NEURO: [Alert and oriented x 3. No gross focal sensory or strength deficits.] PSYCH: Normal affect Course Vital Signs Vital signs: Vital Signs Temperature 98.0 F 11/01/23 04:40 Pulse Rate 60 11/01/23 04:40 Respiratory Rate 15 11/01/23 04:40 Blood Pressure 103/68 11/01/23 04:40 Pulse Oximetry 97 11/01/23 04:40 Oxygen Delivery Room Air 11/01/23 04:40 Temperature 98.0 F 11/01/23 04:40 Pulse Rate 64 11/01/23 04:57 Respiratory Rate 20 11/01/23 04:54 Blood Pressure 103/68 11/01/23 04:40 Pulse Oximetry 94 11/01/23 05:15 Oxygen Delivery Nasal Cannula 11/01/23 05:15 Oxygen Flow Rate 4 11/01/23 05:15 Medical Decision Making MDM Narrative Medical decision making narrative: patient presents here because she is having pain in her knees and legs and cannot walk, on exam she has no significant swelling to her legs, she has normal range of motion, there are no overlying skin changes, no deformities. She is speaking in full sentences and in no respiratory distress, does have some coarse lung sounds, however she is hypoxic requiring nasal cannula. Labs significant for low potassium which is repleted, EKG on my independent interpretation obtained here shows sinus bradycardia rate 59, UT 131, QRS 109, QTC 430, some T-wave inversions And flattened T-waves in lateral leads but otherwise no significant ST elevations or depressions. chest x-ray consistent with on my independent interpretation consistent with likely COPD however I do not see any significant pleural effusions or other signs of fluid overload; BNP essentially normal. I will therefore given a small dose of fluids to go with her Lasix. Discussed with hospitalist since patient unable to walk due to her knee pain she may need to be admitted for PT/OT as well as her oxygen requirement. Patient agreeable to the plan Vital Signs Vital Signs: Vital Signs Temperature 98.0 F 11/01/23 04:40 Pulse Rate 60 11/01/23 04:40 Respiratory Rate 15 11/01/23 04:40 Blood Pressure 103/68 11/01/23 04:40 Pulse Oximetry 97 11/01/23 04:40 Oxygen Delivery Room Air 11/01/23 04:40 Temperature 98.0 F 11/01/23 04:40 Pulse Rate 64 11/01/23 04:57 Respiratory Rate 20 11/01/23 04:54 Blood Pressure 103/68 11/01/23 04:40 Pulse Oximetry 94 11/01/23 05:15 Oxygen Delivery Nasal Cannula 11/01/23 05:15 Oxygen Flow Rate 4 11/01/23 05:
[2023-11-01 05:07] LABS: Alanine Aminotransferase 22 U/L (6-35); Albumin Level 3.6 g/dL (3.5-5.1); Alkaline Phosphatase 48 U/L (38-126); Anion Gap 6 mmol/L (4-12); Aspartate Amino Transferase 23 U/L (14-36); Bilirubin,Total 0.7 mg/dL (0.2-1.3); Blood Urea Nitrogen 24 mg/dL (7-17); Calcium 7.9 mg/dL (8.4-10.2); Carbon Dioxide 39 mmol/L (22-30); Chloride 91 mmol/L (98-107); Estimated CRCL calculation 48 ml/min; Estimated Glomerular Filt Rate > 60; Glucose 96 mg/dL (65-110); Potassium 2.9 mmol/L (3.4-5.0); Sodium 136 mmol/L (137-145)
[2023-11-01 05:08] LABS: Prothrombin Time 13.3 Seconds (11.1-14.7)
[2023-11-01 05:09] LABS: Partial Thromboplastin Time 23.2 Seconds (22.3-36.8)
--- NOTE | 2023-11-01 05:14 | PC.NURSE ---
Patient noted to be 86% on RA while sleeping. Patient easily arousable. Patient placed on 4L via NC and O2 sat increased to 93%. ERP notified. Patient states I had oxygen while in the hospital but they told me to follow up.
[2023-11-01 05:18] LABS: NT Pro B Type Natriuretic Pept 161 pg/mL (19.9-100); Troponin I 0.013 ng/mL (0.000-0.034)
[2023-11-01] MEDS: POTASSIUM CHLORIDE 20 MEQ ER TABLET 40 MEQ PO (05:21)
[2023-11-01] MEDS: KCL 20 MEQ/SW 100 ML 100 ML 50 MEQ IVPB (05:21)
[2023-11-01] MEDS: methylPREDNISolone SOD SUCC 40 MG VIAL IV PUSH (05:21)
[2023-11-01] MEDS: IPRATROPIUM BR 0.02% INH SOLN 0.5 MG/2.5 ML VIAL 1 MG INHALATION (05:30)
[2023-11-01] MEDS: ALBUTEROL SULFATE NEB 2.5 MG/3 ML INH 15 MG INHALATION (05:30)
[2023-11-01] MEDS: LACTATED RINGERS 500 ML 999 ML IV CONT (05:47)
[2023-11-01] MEDS: KETOROLAC 15 MG/ML VIAL (*BKC) IV PUSH (05:47)
--- NOTE | 2023-11-01 07:40 | PC.NURSE ---
This patient, Edith Posada, was admitted to [facility] Surg Room 324-01. Patient/family oriented to hospital policies and general routines including ID bracelet, bed and alarms, visiting hours, pain management, procedures, bathroom and other care routines, personal items, smoking policy, room service/diet, and visiting hours. Information on how to activate the Rapid Response Team has been discussed. Patient/Family are encouraged to report perceived risks to care and to ask questions if they do not understand what they are told or what they should do.
--- NOTE | 2023-11-01 08:56 | PM.IMHP ---
H&P: HPI History of Present Illness Date/Time: 11/01/23 08:56 Chief Complaint: Shortness of breath, swelling, weakness Narrative: This is a 58-year-old female with a significant past medical history of COPD, hyperlipidemia, Hx of Herpes, CVA, pericarditis, coronary artery disease, hypertension, [place] x2, GI bleed, partial hysterectomy, and stent to the right kidney, current every day smoker, marijuana abuse who presented to the hospital with shortness of breath, facial and neck swelling, and pain in bilateral lower extremities. Patient provides the following history of presenting illness. Patient states that she recently obtained custody of her grandchildren on July 15 and once they were in her custody they all came down with a really bad strep throat infections and was placed on antibiotics at that time. She later developed pneumonia and was recently admitted and treated at [facility]. She was also diagnosed with pericarditis and new onset CHF at that time. She was started on Entresto and Lasix for her CHF. She was placed on a steroid taper upon discharge with a course of antibiotics which she finished. Patient does not recall the antibiotics that she took during that stay. She states that while she was being treated in the hospital, she had a flair up of her herpes and was also given a course of acyclovir which she finished. She was discharged home, stayed on new medication regimen for CHF, and was feeling better initially. She was even able to return to work. Later she developed a tooth abscess and was placed on a course of Augmentin which she still has 3 days left to take. She states that on and Friday she noticed increased swelling in BUE, face, neck, and abdomen. She also reported increased pain in bilateral legs which made it difficult to ambulate. She reported that when the pain in her legs came on she went and sat in her bathtub filled with warm water. She felt a bit of relief and returned to bed. The pain worsened and so she went back into the bathtub which did not help her pain. She notified her kids that she needed to go to the hospital. She came in for further evaluation of her symptoms. She denies any fever, chills, nausea, vomiting, abdominal pain, chest pain. She does report facial and neck swelling, shortness of breath, pain in bilateral legs, and pain near in back near right lower lobe of lung. Workup in the ER included a chest x-ray which was negative. Initial labs showed a white blood cell count of 12.1, hemoglobin 16.0, hematocrit 49.0, INR 1.0, sodium 136, chloride 91, potassium 2.9, proBNP 161. EKG shows sinus bradycardia with the rate of 59, QTC 429. Patient was given 60 mEq of potassium while in the ED. Patient was also given albuterol inhaler, Atrovent nebulizer, Solu-Medrol, and 1 L of LR. Review of Systems Review of Systems: All systems reviewed & are unremarkable except as noted in HPI and below Constitutional: Constitutional: Reports as per HPI and Reports no additional constitutional complaints Eyes: Eyes: Reports as per HPI and Reports no additional eye complaints ENT: Reports system reviewed and no additional complaints, except as documented and Reports as per HPI Cardiovascular: Cardiovascular: Reports as per HPI and Reports no additional cardiovascular complaints Respiratory: Respiratory: Reports as per HPI and Reports no additional respiratory complaints Gastrointestinal: Gastrointestinal: Reports as per HPI and Reports no additional gastrointestinal complaints Genitourinary: Genitourinary: Reports no additional female genitourinary complaints and Reports as per HPI Musculoskeletal: Musculoskeletal: Reports no additional musculoskeletal complaints and Reports as per HPI Integumentary/Breasts: Skin/Breast: Reports system reviewed and no additional complaints, except as docu and Reports as per HPI Neurologic: Reports system reviewed and no additional complaints, except as documented and Reports as
--- NOTE | 2023-11-01 10:01 | PC.NURSE ---
Patient arrived to floor at 0715.
[2023-11-01] MEDS: APIXABAN 5 MG TABLET PO ×2 (12:24→20:09)
[2023-11-01] MEDS: FUROSEMIDE 40 MG TABLET PO ×2 (12:25→17:54)
[2023-11-01] MEDS: bisoproloL fumarate 5 MG TABLET PO (12:36)
[2023-11-01] MEDS: AMOXICILLIN/CLAVULANATE K 875-125 MG TAB 1 TABLET PO ×2 (12:40→20:09)
[2023-11-01] MEDS: methylPREDNISolone SOD SUCC 125 MG VIAL IV PUSH (12:43)
[2023-11-01 12:45] LABS: Amphetamine Screen Urine Negative (Negative); Barbiturate Screen Urine Negative (Negative); Benzodiazepines Screen Urine Positive (Negative); Cannabinoid Screen Urine Positive (Negative); Cocaine Screen Urine Negative (Negative); Methadone Screen Urine Negative (Negative); Opiate Screen Urine Negative (Negative); Phencyclidine Screen Urine Negative (Negative)
[2023-11-01] MEDS: ALPRAZolam (*CRX) 0.5 MG TABLET PO (12:45)
[2023-11-01 12:51] LABS: Influenza A QL RT-PCR Negative (Negative); Influenza B QL RT-PCR Negative (Negative); RSV RNA, RT-PCR Negative (Negative); SARS-CoV-2 RNA PCR Negative (Negative)
[2023-11-01 13:01] LABS: Free T4 Free Thyroxine 0.85 ng/mL (0.78-2.19)
[2023-11-01] MEDS: IPRATROPIUM 0.5 MG/ALBUTEROL SULFATE 2.5 MG AMPUL.NEB 3 ML INHALATION ×2 (13:29→21:51)
--- NOTE | 2023-11-01 13:54 | PM.CNCAR ---
Assessment and Plan Assessment and plan (1) Angioedema: Code(s): T78.3XXA - Angioneurotic edema, initial encounter Status: Acute Assessment and Plan: Given the facial swelling and concerns for possible angioedema, I agree with stopping Entresto. Patient did not want us to stop the Entresto without first discussing it with her [facility] team. I did discuss it with the on-call NEEL for [facility], and they also agree with stopping the Entresto. Patient should not be resumed on her Entresto, and all ACEi/ARBs should be avoided as well. (2) Chronic heart failure with preserved ejection fraction (HFpEF, >= 50%): Code(s): I50.32 - Chronic diastolic (congestive) heart failure Status: Acute Assessment and Plan: She is euvolemic. Continue PO Lasix. Stopping the Entresto as noted above. Can consider adding SGLT-2 inhibitor or Spironolactone, however, will defer that to the outpatient setting with her primary call center representative. (3) Hypertension: Code(s): I10 - Essential (primary) hypertension Status: Chronic Assessment and Plan: Continue Bisoprolol. Stopping Entresto as noted above. (4) Hyperlipidemia: Code(s): E78.5 - Hyperlipidemia, unspecified Status: Acute Assessment and Plan: Continue Atorvastatin. (5) Acute hypoxic respiratory failure: Code(s): J96.01 - Acute respiratory failure with hypoxia Status: Acute Assessment and Plan: Management as per primary team. (6) Acute hypokalemia: Code(s): E87.6 - Hypokalemia Status: Acute Assessment and Plan: Keep K > 4, may need daily potassium supplementation as an outpatient as she is on PO Lasix at home. (7) COPD (chronic obstructive pulmonary disease): Code(s): J44.9 - Chronic obstructive pulmonary disease, unspecified Status: Chronic Assessment and Plan: Management as per primary team. (8) CAD (coronary artery disease): Code(s): I25.10 - Atherosclerotic heart disease of [place] coronary artery without angina pectoris Status: Acute Assessment and Plan: Stable, continue Atorvastatin (9) Paroxysmal atrial fibrillation: Code(s): I48.0 - Paroxysmal atrial fibrillation Status: Acute Assessment and Plan: Continue Eliquis and Bisoprolol. Plan Recommendations and plan discussed with Hospitalist. Cardiology will see the patient PRN. Patient to follow up with [facility] after discharge. History of Present Illness History of Present Illness Consult date/time: 11/01/23 13:54 Requesting physician: Mindy Cee, FISH CUTTING MACHINE OPERATOR Consult reason: Other (?SVCS, versus allergic reaction to Entresto, angioedema, CHF) Reason For Visit: Hypoxic, can't walk, low k Narrative: This is a 58 year old female with HFpEF, paroxysmal atrial fibrillation, coronary artery disease, hypertension, COPD. Patient was admitted to [facility] from 10/22 to 10/24 with acute respiratory insufficiency s/p CHF exacerbation, COPD exacerbation, bronchiolitis. Echocardiogram 10/24/2023 showed mild concentric LVH, grade 1 diastolic dysfunction, LVEF 55%. Patient presented to the ER this morning with knee pain, difficulty walking. Also reports that her face is swollen. Reports her abdomen is swollen as well. She was noted to be hypoxic in the ED, requiring supplemental oxygen. Workup shows K of 2.9. Troponin x 1 negative. NT pro BNP of 161. NT pro BNP when admitted to [facility] was 619. TSH is elevated at 10.8, however, FT4 normal. UDS positive for benzos (on Alprazolam at home) and cannabinoids. CXR is clear. Chest CTA shows moderate emphysema, small sliding type hiatal hernia with diffuse wall thickening of the esophagus suggestive of esophagitis such as in the setting of reflux. There is no pulmonary edema, pleural effusions. No significant stenosis of the SVC or evident venous collateralization. EKGs with sinus bradycardia, nonspecific
[2023-11-01] MEDS: ATORVASTATIN 20 MG TABLET PO (20:09)
[2023-11-01] MEDS: BISACODYL 5 MG TABLET EC PO (23:51)
[2023-11-02] VITALS (10 sets, daily range): BP systolic 104–121; BP diastolic 62–75; PULSE 58–77; RESP 18–20; TEMP 36.2–36.6; O2SAT 92–100
[2023-11-02] MEDS: IPRATROPIUM 0.5 MG/ALBUTEROL SULFATE 2.5 MG AMPUL.NEB 3 ML INHALATION ×3 (02:39→13:44)
[2023-11-02 06:48] LABS: Basophils Percent Auto 0.1 % (0.2-1.2); Eosinophils Percent Auto 0.1 % (0-4.4); Hematocrit 45.5 % (37.0-47.0); Immature Granulocyte Absolute 0.12 K/mm3 (0.00-0.031); Immature Granulocyte Percent A 0.7 % (0-0.5); Lymphocytes Absolute Auto 2.35 K/mm3 (0.9-3.2); Lymphocytes Percent Auto 14.6 % (18.3-44.2); Mean Corpuscular Hemoglobin 32.5 pg (26-34); Mean Corpuscular Volume 98.5 fl (80-100); Mean Platelet Volume 10.5 fl (7.4-10.4); Monocytes Absolute Auto 0.6 K/mm3 (0.1-0.6); Neutrophils Percent Auto 80.5 % (45.5-73.1); Platelet Count Result 185 k/mm3 (150-375); Red Blood Count 4.62 M/mm3 (4.2-5.4); Red Cell Distribution Width 14.3 % (11.5-14.5); White Blood Count 16.1 K/mm3 (4.5-10.0)
[2023-11-02 06:59] LABS: Alanine Aminotransferase 22 U/L (6-35); Albumin Level 3.7 g/dL (3.5-5.1); Alkaline Phosphatase 46 U/L (38-126); Anion Gap 5 mmol/L (4-12); Aspartate Amino Transferase 23 U/L (14-36); Bilirubin,Total 0.4 mg/dL (0.2-1.3); Blood Urea Nitrogen 16 mg/dL (7-17); Calcium 8.4 mg/dL (8.4-10.2); Carbon Dioxide 38 mmol/L (22-30); Chloride 93 mmol/L (98-107); Estimated CRCL calculation 70 ml/min; Estimated Glomerular Filt Rate > 60; Glucose 99 mg/dL (65-110); Potassium 3.6 mmol/L (3.4-5.0); Sodium 136 mmol/L (137-145)
[2023-11-02] MEDS: bisoproloL fumarate 5 MG TABLET PO (08:48)
[2023-11-02] MEDS: APIXABAN 5 MG TABLET PO (08:48)
[2023-11-02] MEDS: FUROSEMIDE 40 MG TABLET PO (08:48)
[2023-11-02] MEDS: AMOXICILLIN/CLAVULANATE K 875-125 MG TAB 1 TABLET PO (08:48)
[2023-11-02] MEDS: ALPRAZolam (*CRX) 0.5 MG TABLET PO ×2 (08:48→12:22)
--- NOTE | 2023-11-02 14:23 | P.DS_ITS ---
DS: Admitting Diagnosis Discharge Date 11/02/23 Admitting Diagnosis Shortness of breath, swelling, weakness DS: Discharge Diagnosis Discharge Diagnosis (1) Acute hypoxic respiratory failure: Code(s): J96.01 - Acute respiratory failure with hypoxia Status: Resolved Assessment and Plan: * Likely secondary to Entresto and COPD exacerbation * patient now satting on room air * respiratory panel neg * CTA of chest and neck showed 0% stenosis of the right and left carotid bulbs relative to normal distal artery lumen diameter (NASCET criteria). Moderate emphysema. Small sliding-type hiatal hernia with diffuse wall thickening of the esophagus suggestive of esophagitis such as in the setting of reflux. * DC on 5 additional days of prednisone 40 mg (2) Angioedema: Code(s): T78.3XXA - Angioneurotic edema, initial encounter Status: Acute Assessment and Plan: * Facial and neck swelling with increased SOB on presentation to the hospital * Hold Entresto, follow-up with PCP and bodybuilder. (3) CHF (congestive heart failure): Code(s): I50.9 - Heart failure, unspecified Status: Deleted Assessment and Plan: * Recently diagnosed with CHF at [facility] * continue Lasix, call at 20 meq of potassium daily * Will obtain another Echo to assess for pericarditis due to recent strep infection and abscess tooth * Cardiology consulted - agrees with holding Entresto. follow-up with bodybuilder outpatient * Entresto on hold due to possible angioedema/ allergic reaction. * CTA of the chest negative for PE or infection. * BNP 161, Troponin x2 negative * CXR- negative for any acute cardiopulmonary process. (4) Hypothyroidism: Code(s): E03.9 - Hypothyroidism, unspecified Status: Acute Assessment and Plan: * Questionable new onset * Patient is not currently on any home medications for thyroid disorder * TSH 10.800 * free T4 WNL * follow-up with PCP (5) Acute hypokalemia: Code(s): E87.6 - Hypokalemia Status: Resolved Assessment and Plan: continue to take 20 meq potassium p.o. at home (6) Weakness: Code(s): R53.1 - Weakness Status: Resolved (7) Acute bilateral knee pain: Code(s): M25.561 - Pain in right knee; M25.562 - Pain in left knee Status: Acute (8) COPD (chronic obstructive pulmonary disease): Code(s): J44.9 - Chronic obstructive pulmonary disease, unspecified Status: Chronic Assessment and Plan: * Current every day smoker, smoking cessation encouraged. * Continue albuterol rescue inhaler * on room air (9) Hyperlipidemia: Code(s): E78.5 - Hyperlipidemia, unspecified Status: Chronic Assessment and Plan: * Continue atorvastatin (10) Anxiety: Code(s): F41.9 - Anxiety disorder, unspecified Status: Chronic Assessment and Plan: * Continue alprazolam (11) Hypertension: Code(s): I10 - Essential (primary) hypertension Status: Chronic Assessment and Plan: * Blood pressure ranging * Continue bisoprolol (12) CVA (cerebral vascular accident): Code(s): I63.9 - Cerebral infarction, unspecified Status: Chronic Assessment and Plan: * Continue Eliquis DS: Summary Hospital Course Hospital Course: patient is 58-year-old female with a significant past medical history of COPD, hyperlipidemia, Hx of Herpes, CVA, pericarditis, coronary artery disease
--- NOTE | 2023-11-02 14:23 | PM.DS ---
DS: Admitting Diagnosis Discharge Date 11/02/23 Admitting Diagnosis Shortness of breath, swelling, weakness DS: Discharge Diagnosis Discharge Diagnosis (1) Acute hypoxic respiratory failure: Code(s): J96.01 - Acute respiratory failure with hypoxia Status: Resolved Assessment and Plan: Likely secondary to Entresto and COPD exacerbation patient now satting on room air respiratory panel neg CTA of chest and neck showed 0% stenosis of the right and left carotid bulbs relative to normal distal artery lumen diameter (NASCET criteria). Moderate emphysema. Small sliding-type hiatal hernia with diffuse wall thickening of the esophagus suggestive of esophagitis such as in the setting of reflux. DC on 5 additional days of prednisone 40 mg (2) Angioedema: Code(s): T78.3XXA - Angioneurotic edema, initial encounter Status: Acute Assessment and Plan: Facial and neck swelling with increased SOB on presentation to the hospital Hold Entresto, follow-up with PCP and insole and outsole splitter. (3) CHF (congestive heart failure): Code(s): I50.9 - Heart failure, unspecified Status: Deleted Assessment and Plan: Recently diagnosed with CHF at [facility] continue Lasix, call at 20 meq of potassium daily Will obtain another Echo to assess for pericarditis due to recent strep infection and abscess tooth Cardiology consulted - agrees with holding Entresto. follow-up with insole and outsole splitter outpatient Entresto on hold due to possible angioedema/ allergic reaction. CTA of the chest negative for PE or infection. BNP 161, Troponin x2 negative CXR- negative for any acute cardiopulmonary process. (4) Hypothyroidism: Code(s): E03.9 - Hypothyroidism, unspecified Status: Acute Assessment and Plan: Questionable new onset Patient is not currently on any home medications for thyroid disorder TSH 10.800 free T4 WNL follow-up with PCP (5) Acute hypokalemia: Code(s): E87.6 - Hypokalemia Status: Resolved Assessment and Plan: continue to take 20 meq potassium p.o. at home (6) Weakness: Code(s): R53.1 - Weakness Status: Resolved (7) Acute bilateral knee pain: Code(s): M25.561 - Pain in right knee; M25.562 - Pain in left knee Status: Acute (8) COPD (chronic obstructive pulmonary disease): Code(s): J44.9 - Chronic obstructive pulmonary disease, unspecified Status: Chronic Assessment and Plan: Current every day smoker, smoking cessation encouraged. Continue albuterol rescue inhaler on room air (9) Hyperlipidemia: Code(s): E78.5 - Hyperlipidemia, unspecified Status: Chronic Assessment and Plan: Continue atorvastatin (10) Anxiety: Code(s): F41.9 - Anxiety disorder, unspecified Status: Chronic Assessment and Plan: Continue alprazolam (11) Hypertension: Code(s): I10 - Essential (primary) hypertension Status: Chronic Assessment and Plan: Blood pressure ranging Continue bisoprolol (12) CVA (cerebral vascular accident): Code(s): I63.9 - Cerebral infarction, unspecified Status: Chronic Assessment and Plan: Continue Castillois DS: Summary Hospital Course Hospital Course: patient is 58-year-old female with a significant past medical history of COPD, hyperlipidemia, Hx of Herpes, CVA, pericarditis, coronary artery disease, hypertension, [place] x2, GI bleed, partial hysterectomy, and stent to the right kidney, current every day smoker, marijuana abuse who presented to the hospital with shortness of breath, facial and neck swelling, and pain in bilateral lower extremities. Workup in the ER included a chest x-ray which was negative. Initial labs showed a white blood cell count of 12.1, hemoglobin 16.0, hematocrit 49.0, INR 1.0, sodium 136, chloride 91, potassium 2.9, proBNP 161. EKG shows sinus bradycardia with
== END 2023-11-02 14:41 | disposition home or self-care (01) ==
LOC: ANHED 05:53 → ANH3MEDSUR 06:57
PROVIDERS: Nurse Practitioner Acute Care; Admitting Provider Internal Medicine; Emergency Provider Emergency Medicine; Visit Provider General Practice
DX: J96.01 Acute respiratory failure with hypoxia (principal); T78.3XXA Angioneurotic edema, initial encounter; M25.561 Pain in right knee; M25.562 Pain in left knee; E87.6 Hypokalemia; R53.1 Weakness; J44.9 Chronic obstructive pulmonary disease, unspecified; E03.9 Hypothyroidism, unspecified; I11.0 Hypertensive heart disease with heart failure; I50.9 Heart failure, unspecified; I48.0 Paroxysmal atrial fibrillation; E78.5 Hyperlipidemia, unspecified; I25.10 Atherosclerotic heart disease of native coronary artery without angina pectoris; I25.2 Old myocardial infarction; A60.00 Herpesviral infection of urogenital system, unspecified; F41.9 Anxiety disorder, unspecified; Z20.822 Contact with and (suspected) exposure to COVID-19; F17.210 Nicotine dependence, cigarettes, uncomplicated; F17.290 Nicotine dependence, other tobacco product, uncomplicated; F12.90 Cannabis use, unspecified, uncomplicated; Z79.51 Long term (current) use of inhaled steroids; Z86.73 Personal history of transient ischemic attack (TIA), and cerebral infarction without residual deficits; Z79.01 Long term (current) use of anticoagulants; Z79.899 Other long term (current) drug therapy
CPT/HCPCS: 36415; 70498; 71045; 71275; 73562; 80053; 80307; 83880; 84439; 84443; 84480; 84484; 85025; 85610; 85730; 87637; 93005; 94640; 96361; 96374; 96375; 96376; 97161; 97165; 99285; A9270; G0378; J1885; J2919; J3480; J7120; Q9967

== ENCOUNTER 2024-02-12 21:56 | Emergency (ER) | payer MEDICAID, SELFPAY ==
[2024-02-12] VITALS (8 sets, daily range): BP systolic 124–160; BP diastolic 95–99; PULSE 103–114; RESP 18–26; TEMP 36.6–36.7; O2SAT 88–95
--- NOTE | ~2024-02-12 | XR_ITS ---
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 RESULT: Lines, tubes, and devices: None. Lungs and pleura: Clear. Cardiomediastinal silhouette: Stable. Other: No acute osseous or upper abdominal finding. IMPRESSION: No acute cardiopulmonary process. Reviewed, dictated and finalized at location K. ASSEMBLER
--- NOTE | ~2024-02-12 | CT_ITS ---
EXAMINATION: CTA chest PE protocol DATE: 02/12/2024 23:54 INDICATION: dyspnea eval PE TECHNIQUE: Computed tomography angiography (CTA) of the chest was performed with 100 mL Omnipaque-350 intravenous contrast timed to evaluate the pulmonary arteries. Coronal maximum intensity projection 3D-reconstructions were created by the technologist. The dose-length product (DLP) was 257.56 mGy-cm. Automated exposure control and iterative reconstruction technique were employed. COMPARISON: X-ray chest, same date; CTA chest 11/01/2023. FINDINGS: Lung parenchyma and airways: Moderate emphysematous change. Patent airways. Pleura: Unremarkable. Thoracic inlet, axillae and chest wall: Unremarkable. Thoracic aorta: No significant dilation. No dissection. The left vertebral artery origin is directly off the arch, a normal variant. Mediastinum: Patulous esophagus. Mild mid and lower esophageal wall thickening. Mild dilation of the central pulmonary arteries as can be seen with pulmonary arterial hypertension. Heart and pericardium: Right atrial enlargement. No pericardial effusion. Coronary artery calcifications: Absent. Upper abdomen: No significant finding. Bones: No acute osseous finding. Pulmonary arteries: Study quality: Mild motion artifact in the left lower lobe. No pulmonary emboli d etected. IMPRESSION: No CT evidence of acute pulmonary embolus. Esophagitis. Moderate emphysema. Reviewed, dictated and finalized at location K. E RECRUITER
--- NOTE | 2024-02-12 22:03 | ECG_ITS ---
Test Date: 2024-02-12 22:10:08 Measurements Intervals [place] Rate: 96 P: 70 MN: 122 QRS: 64 QRSD: 94 T: -14 QT: 323 QTc: 410 Interpretive Statements SINUS RHYTHM NONSPECIFIC ST & T-WAVE ABNORMALITY ARTIFACT LIMITS INTERPRETATION ABNORMAL ECG Electronically Signed On 02-13-2024 17:12:51 WIRE COMMUNICATIONS ENGINEER by Garfield Langford M.D.
[2024-02-12 22:18] LABS: Hematocrit 49.6 % (37.0-47.0); Hemoglobin 16.3 g/dL (12.0-15.0); Mean Corpuscular HGB Conc 32.9 g/dl (32-36); Mean Corpuscular Hemoglobin 32.6 pg (26-34); Mean Corpuscular Volume 99.2 fl (80-100); Mean Platelet Volume 9.7 fl (7.4-10.4); Platelet Count Result 328 k/mm3 (150-375); Red Cell Distribution Width 14.5 % (11.5-14.5); White Blood Count 23.2 K/mm3 (4.5-10.0)
[2024-02-12 22:38] LABS: Alanine Aminotransferase 26 U/L (6-35); Albumin Level 4.3 g/dL (3.5-5.1); Alkaline Phosphatase 75 U/L (38-126); Anion Gap 5 mmol/L (4-12); Aspartate Amino Transferase 27 U/L (14-36); Bilirubin,Total 0.6 mg/dL (0.2-1.3); Blood Urea Nitrogen 21 mg/dL (7-17); Calcium 8.6 mg/dL (8.4-10.2); Carbon Dioxide 34 mmol/L (22-30); Chloride 99 mmol/L (98-107); Estimated Glomerular Filt Rate > 60; Glucose 142 mg/dL (65-110); Magnesium 2.1 mg/dL (1.6-2.3); Potassium 3.9 mmol/L (3.4-5.0); Sodium 138 mmol/L (137-145)
[2024-02-12 22:39] LABS: Band Neutrophils Percent 7 % (0-6); Eosinophils Absolute Manual 0.23 K/mm3 (0.02-0.50); Eosinophils Percent Manual 1 % (0-4); Lymphocytes Absolute Manual 4.64 K/mm3 (1.1-4.5); Lymphocytes Percent Manual 20 % (18-44); Monocytes Absolute Manual 1.62 K/mm3 (0.1-0.90); Monocytes Percent Manual 7 % (3-9); Neutrophils Percent Manual 65 % (46-73); Platelet Estimate Adequate (Adequate); Total Cells Counted 100
[2024-02-12 22:40] LABS: Schistocytes None Seen
--- NOTE | 2024-02-12 22:44 | ED.GENADULT ---
HPI - General Adult General Chief complaint: Shortness of Breath/Dyspnea Stated complaint: sob, hx chf Time Seen by Provider: 02/12/24 22:12 History of Present Illness HPI narrative: Patient is a 59-year-old female who presents emergency department chief complaint of shortness of breath and wheezing. The patient reports the last 2 months she has been having shortness of breath has been increasing patient reports he has been on both prednisone and also antibiotics the patient states she has also noticed that she started to fill up with fluid and feels a fullness in her abdomen in her neck patient states she has been feeling very anxious with this as well Related Data Home Medications ?Medication ?Instructions ?Recorded ?Confirmed ?Last Taken ?Type albuterol sulfate 90 mcg/actuation 2 puff inhalation Q4H PRN SOB 11/01/23 11/01/23 Unknown History aerosol inhaler alprazolam 0.5 mg tablet 0.5 mg PO 0800,1200 11/01/23 11/01/23 Unknown History alprazolam 0.5 mg tablet 0.5 mg PO HS 11/01/23 11/01/23 Unknown History apixaban 5 mg tablet (Eliquis) 5 mg PO Q12H 11/01/23 11/01/23 Unknown History atorvastatin 20 mg tablet 20 mg PO HS 11/01/23 11/01/23 Unknown History bisoprolol fumarate 5 mg tablet 5 mg PO DAILY 11/01/23 11/01/23 Unknown History furosemide 40 mg tablet 40 mg PO BID 11/01/23 11/01/23 Unknown History tiotropium 2.5 mcg-olodaterol 2.5 2 puff inhalation DAILY 11/01/23 11/01/23 Unknown History mcg/actuation mist for inhalation (Stiolto Respimat) Allergies Allergy/AdvReac Type Severity Reaction Status Date / Time No Known Allergies Allergy Mild Verified 11/01/23 10:22 Review of Systems Review of Systems: A 10 system review of systems was completed on the patient and is negative except for what is stated in the HPI. Nursing and ancillary documentation was reviewed. [facility] Past Medical History Medical History CVA (cerebral vascular accident) History of pericarditis Stenosis of right renal artery Herpes genitalis in women MRSA (methicillin resistant Staphylococcus aureus) GI bleed Marijuana abuse CAD (coronary artery disease) Hypertension Anxiety COPD (chronic obstructive pulmonary disease) History of hyperlipidemia Surgical History Surgical History History of partial hysterectomy Family History Family History Father CHF (congestive heart failure) Hypertension COPD (chronic obstructive pulmonary disease) Emphysema, unspecified Mother CHF (congestive heart failure) Hypertension CAD (coronary artery disease) COPD (chronic obstructive pulmonary disease) Emphysema, unspecified Sibling , Liver disease and drug abuse Liver disease Social History Social History Social History: Patient states that she is cutting back on cigarette smoking and is supplementing with vaping to try an wean off cigarettes. She does admit to marijuana use but reports she has not been using lately considering her recent illnesses. Smoking packs per day: 1 Smoking cigarettes per day: 20.0 Years smoked: 40 Smoking pack-years: 40.00 Smoking status: Current every day smoker Tobacco type: cigarettes and e-cigarettes/vaping Alcohol intake: never Substance use: current Substance use type: marijuana Do You Feel Safe in your Home?: Yes Lack of Transportation: No Lack of Food: Never True Current Housing: I Do Not Have Housing Concerned About Future Housing: Decline to Answer Difficulty Paying Gas/Electric Bills: Decline to Answer Difficulty Paying for Meds: Decline to Answer Currently Unemployed: Decline to Answer Education: Trade/Vocational Certificate Difficulty w/ Childcare or Family Care: No Spiritual care concerns: No Exam Narrative: GENERAL: Well-appearing, well-nourished, and in no acute distress. HEAD: Normocephalic, atraumatic. EYES: PERRLA and EOMI. ENT: Nares clear, no rhinorrhea or epistaxis. Mucous membranes moist. NECK: Supple. CHEST: Clear to auscultation. No respiratory distress. HEART: Regular rate and rhythm. No murmur heard. Normal peripheral pulses. ABDOMEN: Soft, nontender, nondistended, normal active bowel sounds. EXTREMITIES: Normal range of motion. No edema. SKIN: Warm, dry, no rash. NEURO: No focal deficits. Alert and oriented x3. PSYCH: Normal mood and affect. Course Vital Signs Vital signs: Vital Signs Temperature 36.6 C 02/12/24 21:57 Pulse Rate 103 H 02/12/24 21:57 Respiratory Rate 18 02/12/24 21:57 Blood Pressure 160/99 H 02/12/24 21:57 Pulse Oximetry 90 02/12/24 21:57 Oxygen Delivery Room Air 02/12/24 21:57 Temperature 36.7 C 02/12/24 23:07 Pulse Rate 84 02/13/24 01:03 Respiratory Rate 17 02/13/24 01:03 Blood Pressure 143/86 H 02/13/24 01:03 Pulse Oximetry 97 02/13/24 01:03 Oxygen Delivery Nasal Cannula 02/12/24 23:14 Oxygen Flow Rate 2 02/12/24 23:14 Medical Decision Making MDM Narrative Medical decision making narrative: Differential diagnosis includes pneumonia, COPD exacerbation, CHF exacerbation, viral upper respiratory infection laboratory studies were obtained showed white count 23.2 electrolytes showed a BUN of 21 creatinine is 0.9 potassium 3.9 BNP was 216 troponin was negative procalcitonin 0.1 urinalysis showed no evidence UTI chest x-ray showed no focal infiltrate EKG showed no acute ischemic changes. CTA chest showed no acute abnormality The patient was requiring supplemental oxygen It was discussed with the patient admission the patient reports that she is currently fostering a young child at home and cannot stay in the hospital who was informed to the patient that she is requiring supplemental oxygen and currently does not use supplemental oxygen on a regular basis patient expressed understanding this but stated that she did not want stay in the hospital it would try to follow-up with her roving marker tomorrow the patient will be given a prescription for steroid pulse antibiotics and was instructed to increase her Lasix dose to 40 mg b.i.d. Vital Signs Vital Signs: Vital Signs Temperature 36.6 C 02/12/24 21:57 Pulse Rate 103 H 02/12/24 21:57 Respiratory Rate 18 02/12/24 21:57 Blood Pressure 160/99 H 02/12/24 21:57 Pulse Oximetry 90 02/12/24 21:57 Oxygen Delivery Room Air 02/12/24 21:57 Temperature 36.7 C 02/12/24 23:07 Pulse Rate 84 02/13/24 01:03 Respiratory Rate 17 02/13/24 01:03 Blood Pressure 143/86 H 02/13/24 01:03 Pulse Oximetry 97 02/13/24 01:03 Oxygen Delivery Nasal Cannula 02/12/24 23:14 Oxygen Flow Rate 2 02/12/24 23:14 Lab Data 02/12/24 22:11 02/12/24 22:11 Labs: Lab Results 02/12/24 02/12/24 Range/Units 22:11 23:04 WBC 23.2 H (4.5-10.0) K/mm3 RBC 5.00 (4.2-5.4) M/mm3 Hgb 16.3 H (12.0-15.0) g/dL Hct 49.6 H (37.0-47.0) % MCV 99.2 (80-100) fl MCH 32.6 (26-34) pg MCHC 32.9 (32-36) g/dl RDW 14.5 (11.5-14.5) % Plt Count 328 D (150-375) k/mm3 MPV 9.7 (7.4-10.4) fl Immature Gran % (Auto) Not Reportable Neut % (Auto) Not Reportable Lymph % (Auto) Not Reportable [place] % (Auto) Not Reportable Eos % (Auto) Not Reportable Baso % (Auto) Not Reportable Lymph # (Auto) Not Reportable [place] # (Auto) Not Reportable Eos # (Auto) Not Reportable Baso # (Auto) Not Reportable Abs Immat Gran (auto) Not Reportable Absolute Neuts (auto) Not Reportable Absolute Nucleated RBC Not Reportable Total Counted 100 Neutrophils % (Manual) 65 (46-73) % Band Neutrophils % 7 H (0-6) % Lymphocytes % (Manual) 20 (18-44) % Monocytes % (Manual) 7 (3-9) % Eosinophils % (Manual) 1 (0-4) % Nucleated RBC % Not Reportable Abs Neuts (Manual) 16.70 H (1.7-7.2) K/mm3 Abs Lymphs (Manual) 4.64 H (1.1-4.5) K/mm3 Abs Monocytes (Manual) 1.62 H (0.1-0.90) K/mm3 Absolute Eos (Manual) 0.23 (0.02-0.50) K/mm3 Platelet Estimate Adequate (Adequate) Schistocytes None seen Sodium 138 (137-145) mmol/L Potassium 3.9 (3.4-5.0) mmol/L Chloride 99 (98-107) mmol/L Carbon Dioxide 34 H (22-30) mmol/L Anion Gap 5 (4-12) mmol/L BUN 21 H (7-17) mg/dL Creatinine 0.90 (0.7-1.0) mg/dL Estim Creat Clear Calc Not Reportable Estimated GFR > 60 (59 - ) Glucose 142 H (65-110) mg/dL Lactic Acid 1.4 (0.7-2.0) mmol/L Calcium 8.6 (8.4-10.2) mg/dL Magnesium 2.1 (1.6-2.3) mg/dL Total Bilirubin 0.6 (0.2-1.3) mg/dL AST 27 (14-36) U/L ALT 26 (6-35) U/L Alkaline Phosphatase 75 (38-126) U/L Troponin I < 0.012 (0.000-0.034) ng/mL NT-Pro-B Natriuret Pep 216 H (19.9-100) pg/mL Total Protein 7.0 (6.3-8.2) g/dL Albumin 4.3 (3.5-5.1) g/dL Procalcitonin 0.1 ng/mL Urine Color Yellow (Yellow) Urine Appearance Clear (Clear) Urine pH 5.5 (5.0-9.0) Ur Specific [place] 1.008 (1.001-1.035) Urine Protein Negative (Negative) mg/dL Urine Glucose (UA) Negative (Negative) mg/dL Urine Ketones Negative (Negative) mg/dL Ur Blood (Man) Negative (Negative) Urine Nitrate Negative (Negative) Urine Bilirubin Negative (Negative) Urine Urobilinogen 0.2 (<2.0) mg/dL Leukocyte Esterase Rfl Negative (Negative) NOÉ/UL Discharge Plan Discharge Clinical Impression: Congestive heart failure, Acute exacerbation of chronic obstructive pulmonary disease Patient Disposition: Left Against Medical Advice Condition: Stable Instructions: Heart Failure (ED), Chronic Lung Disease and Infection Prevention (ED) Additional Instructions: Your recommended stay in the hospital. If her symptoms worsen please return to the emergency department for evaluation is recommended that you follow-up with your roving marker and your primary doctor as soon as possible. Please increase your Lasix to 40 mg twice daily Patient Language: Citizen Of [place] Prescriptions: New prednisone 20 mg tablet 40 mg PO DAILY 5 Days Qty: 10 0RF doxycycline hyclate 100 mg tablet 100 mg PO BID Qty: 14 0RF No Action albuterol sulfate 90 mcg/actuation HFA aerosol inhaler 1 inh inhalation Q4-6H PRN (Reason: shortness of breath or wheezing) Qty: 6.7 0RF amoxicillin-pot clavulanate 875-125 mg tablet 1 tablet PO Q12H 7 Days Qty: 14 0RF Rx Instructions: for 10 days furosemide 40 mg tablet 40 mg PO BID atorvastatin 20 mg tablet 20 mg PO HS bisoprolol fumarate 5 mg tablet 5 mg PO DAILY alprazolam 0.5 mg tablet 0.5 mg PO 0800,1200 Rx Instructions: Takes morning, noon, and bedtime alprazolam 0.5 mg tablet 0.5 mg PO HS albuterol sulfate 90 mcg/actuation HFA aerosol inhaler 2 puff inhalation Q4H PRN (Reason: SOB) Eliquis 5 mg tablet 5 mg PO Q12H Stiolto Respimat 2.5-2.5 mcg/actuation mist 2 puff INHALATION DAILY potassium chloride 20 mEq tablet extended release 20 meq PO DAILY Qty: 30 0RF acetaminophen 325 mg tablet 325 mg PO ONCE PRN (Reason: fever or pain) Qty: 20 0RF Rx Instructions: Take 1 tablet for pain every 4 hours as needed. prednisone 20 mg tablet 20 mg PO BID 5 Days Qty: 10 0RF Follow-up/Referrals: Shlomo Dominguez MD [Physician] - PHYSICIAN,REGULATORY AFFAIRS DIRECTOR [Primary Care Provider] - Time of Disposition: 01:19
[2024-02-12 22:49] LABS: NT Pro B Type Natriuretic Pept 216 pg/mL (19.9-100); Troponin I < 0.012 ng/mL (0.000-0.034)
[2024-02-12 23:02] LABS: Procalcitonin 0.1 ng/mL
[2024-02-12 23:12] LABS: Add Urine Microscopic? NO; Appearance Urine Clear (Clear); Bilirubin Urine Negative (Negative); Blood Urine Negative (Negative); Color Urine Yellow (Yellow); Glucose Urine UA Negative (Negative); Ketones Urine Negative (Negative); Leukocyte Esterase Ur Negative LEU/UL (Negative); Nitrate Urine Negative (Negative); Protein Urine Negative (Negative); Specific Grav Ur 1.008 (1.001-1.035); Urobilinogen Urine 0.2 mg/dL (<2.0); pH Urine 5.5 (5.0-9.0)
[2024-02-12] MEDS: IPRATROPIUM 0.5 MG/ALBUTEROL SULFATE 2.5 MG AMPUL.NEB 3 ML INHALATION (23:16)
[2024-02-12 23:24] LABS: Lactic Acid Reflex 1.4 mmol/L (0.7-2.0)
[2024-02-12] MEDS: FUROSEMIDE INJ 40 MG/4 ML VIAL IV PUSH (23:34)
[2024-02-12] MEDS: methylPREDNISolone SOD SUCC 125 MG VIAL IV PUSH (23:34)
[2024-02-13 01:03] VITALS: BP 143/86; PULSE 84; RESP 17; O2SAT 97
== END 2024-02-13 01:45 | disposition left against medical advice (07) ==
PROVIDERS: Emergency Provider Emergency Medicine
DX: I11.0 Hypertensive heart disease with heart failure (principal); I50.9 Heart failure, unspecified; J44.1 Chronic obstructive pulmonary disease with (acute) exacerbation; F17.210 Nicotine dependence, cigarettes, uncomplicated; Z86.73 Personal history of transient ischemic attack (TIA), and cerebral infarction without residual deficits; I25.10 Atherosclerotic heart disease of native coronary artery without angina pectoris; F41.9 Anxiety disorder, unspecified; E78.5 Hyperlipidemia, unspecified
CPT/HCPCS: 36415; 71046; 71275; 80053; 81003; 83605; 83735; 83880; 84145; 84484; 85025; 93005; 94640; 96374; 96375; 99284; J1940; J2919; Q9967

== ENCOUNTER 2024-02-13 04:00 | Inpatient (IN) | payer MEDICAID, SELFPAY ==
[2024-02-13] VITALS (30 sets, daily range): BP systolic 83–145; BP diastolic 52–112; PULSE 66–114; RESP 15–32; TEMP 35.9–36.7; O2SAT 85–98; BMI 26.6
--- NOTE | 2024-02-13 08:40 | ED.GENADULT ---
HPI - General Adult General Chief complaint: Shortness of Breath/Dyspnea Stated complaint: SOB, hx of CHF Time Seen by Provider: 02/13/24 08:28 History of Present Illness HPI narrative: 59-year-old female with history of CHF and COPD presented emergency department for evaluation after leaving AMA last night. Patient was evaluated last night for worsening shortness of breath and patient was found to be hypoxic on room air and had an O2 requirement. Patient was encouraged to stay for suspected CHF/COPD exacerbation but patient needed to make arrangements for her foster child. Patient returned to the emergency department this morning. Upon arrival to the emergency department patient's blood pressure hypotensive and patient was complaining of shortness of breath. Related Data Home Medications ?Medication ?Instructions ?Recorded ?Confirmed ?Last Taken ?Type alprazolam 0.5 mg tablet 0.5 mg PO 0800,1200 11/01/23 02/13/24 02/12/24 History alprazolam 0.5 mg tablet 0.5 mg PO HS 11/01/23 02/13/24 02/12/24 History apixaban 5 mg tablet (Eliquis) 5 mg PO Q12H 11/01/23 02/13/24 02/12/24 History atorvastatin 20 mg tablet 20 mg PO HS 11/01/23 02/13/24 02/12/24 History bisoprolol fumarate 5 mg tablet 5 mg PO BID 11/01/23 02/13/24 02/12/24 History furosemide 40 mg tablet 40 mg PO BID 11/01/23 02/13/24 02/12/24 History tiotropium 2.5 mcg-olodaterol 2.5 2 puff inhalation DAILY 11/01/23 02/13/24 02/12/24 History mcg/actuation mist for inhalation (Stiolto Respimat) potassium chloride 10 mEq 10 meq PO BID 02/13/24 02/13/24 02/12/24 History tablet,extended release prednisone 50 mg tablet 40 mg PO DAILY 02/13/24 02/13/24 Unknown History spironolactone 25 mg tablet 25 mg PO DAILY 02/13/24 02/13/24 02/12/24 History Allergies Allergy/AdvReac Type Severity Reaction Status Date / Time No Known Allergies Allergy Mild Verified 11/01/23 10:22 Review of Systems Review of Systems: All systems reviewed & are unremarkable except as noted in HPI and below PMFSH Past Medical History Medical History CVA (cerebral vascular accident) History of pericarditis Stenosis of right renal artery Herpes genitalis in women MRSA (methicillin resistant Staphylococcus aureus) GI bleed Marijuana abuse CAD (coronary artery disease) Hypertension Anxiety COPD (chronic obstructive pulmonary disease) History of hyperlipidemia Surgical History Surgical History History of partial hysterectomy Family History Family History Father CHF (congestive heart failure) Hypertension COPD (chronic obstructive pulmonary disease) Emphysema, unspecified Mother CHF (congestive heart failure) Hypertension CAD (coronary artery disease) COPD (chronic obstructive pulmonary disease) Emphysema, unspecified Sibling , Liver disease and drug abuse Liver disease Social History Social History Social History: Patient states that she is cutting back on cigarette smoking and is supplementing with vaping to try an wean off cigarettes. She does admit to marijuana use but reports she has not been using lately considering her recent illnesses. Smoking packs per day: 1 Smoking cigarettes per day: 20.0 Years smoked: 40 Smoking pack-years: 40.00 Smoking status: Current every day smoker Alcohol intake: never Substance use: current Substance use type: marijuana Last use: last week Do You Feel Safe in your Home?: Yes Lack of Transportation: No Lack of Food: Never True Current Housing: I Do Not Have Housing Concerned About Future Housing: Decline to Answer Difficulty Paying Gas/Electric Bills: Decline to Answer Difficulty Paying for Meds: Decline to Answer Currently Unemployed: Decline to Answer Education: Trade/Vocational Certificate Difficulty w/ Childcare or Family Care: No Spiritual care concerns: No Exam Narrative: APPEARANCE: Well appearing, no pain, no distress, well-nourished. HEAD: normocephalic, atraumatic. EYES: PERRLA/EOMI, conjunctivae clear. NOSE: Normal no drainage EARS:TMS clear with good light reflex. THROAT: Pharynx clear, no exudate. NECK: Supple. No adenopathy, no masses. RESPIRATORY: Wheeze and rhonchi bilaterally CARDIOVASCULAR: Regular rate and rhythm without murmurs rubs or gallops. ABDOMINAL: Soft, nontender, nondistended, normal bowel sounds MUSCULOSKELETAL: Moves all extremities. Strength/ROM intact, No edema, No calf tenderness. NEURO: Alert. Cranial nerves II through XII intact. Grossly SKIN: Warm, dry. Normal Color Course Vital Signs Vital signs: Vital Signs Pulse Rate 88 02/13/24 04:01 Respiratory Rate 18 02/13/24 04:01 Blood Pressure 126/87 02/13/24 04:01 Pulse Oximetry 93 02/13/24 04:01 Oxygen Delivery Room Air 02/13/24 04:01 Temperature 96.7 F L 02/13/24 14:00 Pulse Rate 80 02/13/24 16:41 Respiratory Rate 18 02/13/24 14:32 Blood Pressure 136/81 02/13/24 14:00 Pulse Oximetry 92 02/13/24 15:00 Oxygen Delivery Nasal Cannula 02/13/24 15:00 Oxygen Flow Rate 2 02/13/24 15:00 Medical Decision Making MDM Narrative Medical decision making narrative: 59-year-old female returning to the emergency department for dissipated admission for shortness of breath. Patient was evaluated last night in the emergency department but left to take care of her foster child. Patient did have an O2 requirement last night. Initially a upon return to the emergency department patient was maintaining her oxygen but this also did drop to 85% at rest. Patient does have an elevated leukocytosis but patient has had frequent episodes of leukocytosis. Patient's hemoglobin is 16.7, which is also similar to her baseline, no significant abnormalities on the patient's CMP patient was negative for influenza RSV and for COVID. Patient's CTA last night showed no evidence of pulmonary embolism, showed esophagitis and moderate emphysema. Patient was treated with Solu-Medrol upon arrival emergency department for possible COPD exacerbation. No evidence of pneumonia on the CT scan so patient was not started on antibiotics. Case was discussed with the hospitalist patient was accepted for admission. Differential Diagnosis Differential Diagnosis: Pneumonia, COPD, CHF, influenza, RSV, COVID, pulmonary embolism Vital Signs Vital Signs: Vital Signs Pulse Rate 88 02/13/24 04:01 Respiratory Rate 18 02/13/24 04:01 Blood Pressure 126/87 02/13/24 04:01 Pulse Oximetry 93 02/13/24 04:01 Oxygen Delivery Room Air 02/13/24 04:01 Temperature 96.7 F L 02/13/24 14:00 Pulse Rate 80 02/13/24 16:41 Respiratory Rate 18 02/13/24 14:32 Blood Pressure 136/81 02/13/24 14:00 Pulse Oximetry 92 02/13/24 15:00 Oxygen Delivery Nasal Cannula 02/13/24 15:00 Oxygen Flow Rate 2 02/13/24 15:00 Lab Data Lab results reviewed: Yes I reviewed the patient's lab results. 02/13/24 08:44 02/13/24 08:43 Labs: Lab Results 02/13/24 02/13/24 Range/Units 08:43 08:44 WBC 20.4 H (4.5-10.0) K/mm3 RBC 5.16 (4.2-5.4) M/mm3 Hgb 16.7 H (12.0-15.0) g/dL Hct 50.8 H (37.0-47.0) % MCV 98.4 (80-100) fl MCH 32.4 (26-34) pg MCHC 32.9 (32-36) g/dl RDW 14.3 (11.5-14.5) % Plt Count 328 (150-375) k/mm3 MPV 9.6 (7.4-10.4) fl Immature Gran % (Auto) Not Reportable Neut % (Auto) Not Reportable Lymph % (Auto) Not Reportable [place] % (Auto) Not Reportable Eos % (Auto) Not Reportable Baso % (Auto) Not Reportable Lymph # (Auto) Not Reportable [place] # (Auto) Not Reportable Eos # (Auto) Not Reportable Baso # (Auto) Not Reportable Abs Immat Gran (auto) Not Reportable Absolute Neuts (auto) Not Reportable Absolute Nucleated RBC Not Reportable Total Counted 100 Neutrophils % (Manual) 86 H (46-73) % Band Neutrophils % 2 (0-6) % Lymphocytes % (Manual) 12 L (18-44) % Monocytes % (Manual) 0 L (3-9) % Eosinophils % (Manual) 0 (0-4) % Basophils % (Manual) 0 (0-1) % Nucleated RBC % Not Reportable Abs Neuts (Manual) 17.95 H (1.7-7.2) K/mm3 Abs Lymphs (Manual) 2.44 (1.1-4.5) K/mm3 Abs Monocytes (Manual) 0.00 L (0.1-0.90) K/mm3 Absolute Eos (Manual) 0.00 L (0.02-0.50) K/mm3 Abs Basophils (Manual) 0.00 (0.0-0.1) K/mm3 Platelet Estimate Adequate (Adequate) Large Platelets Present Giant Platelets Present Schistocytes None seen Sodium 135 L (137-145) mmol/L Potassium 4.4 (3.4-5.0) mmol/L Chloride 98 (98-107) mmol/L Carbon Dioxide 34 H (22-30) mmol/L Anion Gap 3 L (4-12) mmol/L BUN 22 H (7-17) mg/dL Creatinine 0.70 (0.7-1.0) mg/dL Estim Creat Clear Calc Not Reportable Estimated GFR > 60 (59 - ) Glucose 130 H (65-110) mg/dL Calcium 9.2 (8.4-10.2) mg/dL Total Bilirubin 0.6 (0.2-1.3) mg/dL AST 24 (14-36) U/L ALT 25 (6-35) U/L Alkaline Phosphatase 80 (38-126) U/L Total Protein 7.0 (6.3-8.2) g/dL Albumin 4.5 (3.5-5.1) g/dL Influenza A (RT-PCR) Negative (Negative) Influenza B (RT-PCR) Negative (Negative) RSV (RT-PCR) Negative (Negative) SARS-CoV-2 RNA (RT-PCR) Negative (Negative) Discharge Plan Discharge Clinical Impression: COPD (chronic obstructive pulmonary disease), CHF (congestive heart failure), Hypoxia Patient Disposition: Still a Patient Condition: Serious
[2024-02-13] MEDS: ALBUTEROL SULFATE NEB 2.5 MG/3 ML INH 5 MG INHALATION (08:50)
[2024-02-13 09:03] LABS: Hematocrit 50.8 % (37.0-47.0); Hemoglobin 16.7 g/dL (12.0-15.0); Mean Corpuscular HGB Conc 32.9 g/dl (32-36); Mean Corpuscular Hemoglobin 32.4 pg (26-34); Mean Corpuscular Volume 98.4 fl (80-100); Mean Platelet Volume 9.6 fl (7.4-10.4); Platelet Count Result 328 k/mm3 (150-375); Red Blood Count 5.16 M/mm3 (4.2-5.4); Red Cell Distribution Width 14.3 % (11.5-14.5); White Blood Count 20.4 K/mm3 (4.5-10.0)
[2024-02-13 09:05] LABS: Alanine Aminotransferase 25 U/L (6-35); Albumin Level 4.5 g/dL (3.5-5.1); Alkaline Phosphatase 80 U/L (38-126); Anion Gap 3 mmol/L (4-12); Aspartate Amino Transferase 24 U/L (14-36); Bilirubin,Total 0.6 mg/dL (0.2-1.3); Blood Urea Nitrogen 22 mg/dL (7-17); Calcium 9.2 mg/dL (8.4-10.2); Carbon Dioxide 34 mmol/L (22-30); Chloride 98 mmol/L (98-107); Estimated Glomerular Filt Rate > 60; Glucose 130 mg/dL (65-110); Potassium 4.4 mmol/L (3.4-5.0); Sodium 135 mmol/L (137-145)
[2024-02-13 09:32] LABS: Influenza A QL RT-PCR Negative (Negative); Influenza B QL RT-PCR Negative (Negative); RSV RNA, RT-PCR Negative (Negative); SARS-CoV-2 RNA PCR Negative (Negative)
[2024-02-13 09:43] LABS: Band Neutrophils Percent 2 % (0-6); Basophils Percent Manual 0 % (0-1); Eosinophils Percent Manual 0 % (0-4); Giant Platelets Present; Large Platelets Present; Lymphocytes Absolute Manual 2.44 K/mm3 (1.1-4.5); Lymphocytes Percent Manual 12 % (18-44); Monocytes Percent Manual 0 % (3-9); Neutrophils Absolute Manual 17.95 K/mm3 (1.7-7.2); Neutrophils Percent Manual 86 % (46-73); Platelet Estimate Adequate (Adequate); Total Cells Counted 100
[2024-02-13 09:44] LABS: Schistocytes None Seen
[2024-02-13] MEDS: methylPREDNISolone SOD SUCC 125 MG VIAL IV PUSH (09:59)
--- NOTE | 2024-02-13 11:15 | ADMGEN ---
This patient, Edith Posada, was admitted to -. Patient/family oriented to hospital policies and general routines including ID bracelet, bed and alarms, visiting hours, pain management, procedures, bathroom and other care routines, personal items, smoking policy, room service/diet, and visiting hours. Information on how to activate the Rapid Response Team has been discussed. Patient/Family are encouraged to report perceived risks to care and to ask questions if they do not understand what they are told or what they should do.
[2024-02-13] MEDS: methylPREDNISolone SOD SUCC 125 MG VIAL 60 MG IV PUSH (12:53)
[2024-02-13] MEDS: ALBUTEROL SULFATE NEB 2.5 MG/3 ML INH INHALATION (14:19)
[2024-02-13] MEDS: IPRATROPIUM BR 0.02% INH SOLN 0.5 MG/2.5 ML VIAL INHALATION (14:19)
--- NOTE | 2024-02-13 14:43 | P.HP_ITS ---
H&P: HPI History of Present Illness Date/Time: 02/13/24 14:43 Chief Complaint: SOB Narrative: 58-year-old female with a significant past medical history of COPD, hyperlipidemia, Hx of Herpes, CVA, pericarditis, coronary artery disease, hypertension, [place] x2, GI bleed, partial hysterectomy, and stent to the right kidney, current every day smoker, marijuana abuse who presented to the hospital with shortness of breath. Patient noted she has been having SOB since October with multiple hospital admissions. Noted she has not been on her lasix as she has ran out and noted abd swelling which is her sign of CHF exacerbation. Denies any vomiting, abd pain, diarrhea, no chest pain and no dysuria. Patient on 2 liters at baseline. ER eval notable [place] 79, RR 18, saturating 96% on 4 liters. Labs notable WBC 20.4, Cr 0.7, Na 135. CTA chest No PE, Esophagitis and moderate emphysema. Patient was started on Lasix, bronchodilators and IV steroids. Review of Systems Review of Systems: All other systems were reviewed and negative except as noted in the HPI above PMFSH Past Medical History Medical History CVA (cerebral vascular accident) History of pericarditis Stenosis of right renal artery Herpes genitalis in women MRSA (methicillin resistant Staphylococcus aureus) GI bleed Marijuana abuse CAD (coronary artery disease) Hypertension Anxiety COPD (chronic obstructive pulmonary disease) History of hyperlipidemia Surgical History Surgical History History of partial hysterectomy Family History Family History Father CHF (congestive heart failure) Hypertension COPD (chronic obstructive pulmonary disease) Emphysema, unspecified Mother CHF (congestive heart failure) Hypertension CAD (coronary artery disease) COPD (chronic obstructive pulmonary disease) Emphysema, unspecified Sibling , Liver disease and drug abuse Liver disease Social History Social History Social History: Patient states that she is cutting back on cigarette smoking and is supplementing with vaping to try an wean off cigarettes. She does admit to marijuana use but reports she has not been using lately considering her recent illnesses. Smoking packs per day: 1 Smoking cigarettes per day: 20.0 Years smoked: 40 Smoking pack-years: 40.00 Smoking status: Current every day smoker Alcohol intake: never Substance use: current Substance use type: marijuana Last use: last week Do You Feel Safe in your Home?: Yes Lack of Transportation: No Lack of Food: Never True Current Housing: I Do Not Have Housing Concerned About Future Housing: Decline to Answer Difficulty Paying Gas/Electric Bills: Decline to Answer Difficulty Paying for Meds: Decline to Answer Currently Unemployed: Decline to Answer Education: Trade/Vocational Certificate Difficulty w/ Childcare or Family Care: No Spiritual care concerns: No Meds Home Medications and Allergies Home Medications ?Medication ?Instructions ?Recorded ?Confirmed ?Type albuterol sulfate 90 mcg/actuation 1 inh inhalation Q4-6H PRN 05/23/22 02/13/24 Rx aerosol inhaler shortness of breath or wheezing #6.7 grams alprazolam 0.5 mg tablet 0.5 mg PO 0800,1200 11/01/23 02/13/24 History alprazolam 0.5 mg tablet 0.5 mg PO HS 11/01/23 02/13/24 History apixaban 5 mg tablet (Eliquis) 5 mg PO Q12H 11/01/23 02/13/24 History atorvastatin 20 mg tablet 20 mg PO HS 11/01/23 02/13/24 History bisoprolol fumarate 5 mg tablet 5 mg PO BID 11/01/23 02/13/24 History furosemide 40 mg tablet 40 mg PO BID 11/01/23 02/13/24 History tiotropium 2.5 mcg-olodaterol 2.5 2 puff inhalation DAILY 11/01/23 02/13/24 History mcg/actuation mist for inhalation (Stiolto Respimat) doxycycline hyclate 100 mg tablet 100 mg PO BID #14 tabs 02/13/24 02/13/24 Rx potassium chloride 10 mEq 10 meq PO BID 02/13/24 02/13/24 History tablet,extended release prednisone 50 mg tablet 40 mg PO DAILY 02/13/24 02/13/24 History spironolactone 25 mg tablet 25 mg PO DAILY 02/13/24 02/13/24 History Allergies Allergy/AdvReac Type Severity Reaction Status Date / Time No Known Allergies Allergy Mild Verified 11/01/23 10:22 Vital Signs Vital Signs - 24 hr 02/13/24 04:01 02/13/24 06:15 02/13/24 08:27 Temperature 98.0 F Pulse Rate 88 113 H 100 Respiratory Rate 18 18 18 Blood Pressure 126/87 129/93 H 83/52 L Pulse Oximetry 93 94 94 Oxygen Delivery Room Air Oxygen Flow Rate 02/13/24 08:38 02/13/24 08:45 02/13/24 08:45 Temperature Pulse Rate 107 H 114 H 109 H Respiratory Rate 32 H 16 Blood Pressure 124/92 H Pulse Oximetry 95 93 Oxygen Delivery Oxygen Flow Rate 02/13/24 08:46 02/13/24 08:51 02/13/24 09:05 Temperature Pulse Rate 109 H 108 H 88 Respiratory Rate 25 H 20 15 Blood Pressure Pulse Oximetry 92 Oxygen Delivery Oxygen Flow Rate 02/13/24 09:06 02/13/24 09:17 02/13/24 09:30 Temperature Pulse Rate 110 H 82 81 Respiratory Rate 24 H 21 H 24 H Blood Pressure 145/112 H Pulse Oximetry 88 L 89 L 89 L Oxygen Delivery Oxygen Flow Rate 02/13/24 09:31 02/13/24 09:49 02/13/24 09:50 Temperature Pulse Rate 84 80 Respiratory Rate 23 H 21 H Blood Pressure 144/107 H Pulse Oximetry 88 L 85 L 85 L Oxygen Delivery Oxygen Flow Rate 02/13/24 09:55 02/13/24 11:26 02/13/24 11:30 Temperature 96.7 F L Pulse Rate 77 78 Respiratory Rate 18 Blood Pressure 108/81 Pulse Oximetry 93 98 Oxygen Delivery Nasal Cannula Oxygen Flow Rate 4 02/13/24 12:00 02/13/24 12:02 02/13/24 14:19 Temperature Pulse Rate 80 Respiratory Rate 18 Blood Pressure Pulse Oximetry 98 96 Oxygen Delivery Nasal Cannula Nasal Cannula Oxygen Flow Rate 4 4 02/13/24 14:22 02/13/24 14:32 Temperature Pulse Rate 76 79 Respiratory Rate 18 18 Blood Pressure Pulse Oximetry Oxygen Delivery Oxygen Flow Rate H&P: Results Labs Labs: Short CBC 02/13/24 Range/Units 08:44 WBC 20.4 H (4.5-10.0) K/mm3 Hgb 16.7 H (12.0-15.0) g/dL Hct 50.8 H (37.0-47.0) % Plt Count 328 (150-375) k/mm3 BMP 02/13/24 08:43 Sodium 135 L Potassium 4.4 Chloride 98 Carbon Dioxide 34 H BUN 22 H Creatinine 0.70 Glucose 130 H Calcium 9.2 Liver Function 02/13/24 Range/Units 08:43 Total Bilirubin 0.6 (0.2-1.3) mg/dL AST 24 (14-36) U/L ALT 25 (6-35) U/L Alkaline Phosphatase 80 (38-126) U/L Albumin 4.5 (3.5-5.1) g/dL Assessment and Plan Assessment and plan (1) CHF (congestive heart failure): Code(s): I50.9 - Heart failure, unspecified Status: Acute (2) Hypoxia: Code(s): R09.02 - Hypoxemia Status: Acute (3) Acute exacerbation of chronic obstructive pulmonary disease: Code(s): J44.1 - Chronic obstructive pulmonary disease with (acute) exacerbation Status: Acute Plan Acute on chronic hypoxemic respiratory failure Currently on 4 liters, 2 liters at baseline From COPD exacerbation monitor COPD exacerbation Patient still 1 PPD Continue IV steroids and bronchodilators monitor Tobacco use Counseled about cessation CHF no pulm edema on CT chest continue home meds HLD Continue home meds Hx of CVA continue home meds HTN continue home meds Renal artery stenosis s/p stents continue antiplatelets Anxiety continue home meds DVT prophylaxis on ELiquis Full code Surrogate decision maker, daughter [facility] Hospitalist [facility] Advance Care Plan I have confirmed that the patient's Advanced Care Plan is present, code status is documented, or surrogate decision maker is listed in patient medical record.: Yes Medication Reconciliation I have utilized all available resources to obtain, update and review the patients current medications (includes all prescriptions, OTC, herbals, cannabis, and nutritional supplements).: Yes
[2024-02-13] MEDS: FUROSEMIDE INJ 40 MG/4 ML VIAL 20 MG IV PUSH (16:41)
[2024-02-13] MEDS: POTASSIUM CHLORIDE 10 MEQ ER TABLET PO (16:41)
[2024-02-13] MEDS: IPRATROPIUM 0.5 MG/ALBUTEROL SULFATE 2.5 MG AMPUL.NEB 3 ML INHALATION (20:10)
[2024-02-13] MEDS: APIXABAN 5 MG TABLET PO (20:25)
[2024-02-13] MEDS: ATORVASTATIN 20 MG TABLET PO (20:25)
[2024-02-13] MEDS: ALPRAZolam (*CRX) 0.5 MG TABLET PO (20:25)
[2024-02-13] MEDS: methylPREDNISolone SOD SUCC 125 MG VIAL 40 MG IV PUSH (21:14)
[2024-02-14] VITALS (9 sets, daily range): BP systolic 113; BP diastolic 77; PULSE 60–73; RESP 18–20; TEMP 36.6; O2SAT 93–94
[2024-02-14] MEDS: IPRATROPIUM 0.5 MG/ALBUTEROL SULFATE 2.5 MG AMPUL.NEB 3 ML INHALATION ×2 (01:39→07:03)
[2024-02-14] MEDS: methylPREDNISolone SOD SUCC 125 MG VIAL 40 MG IV PUSH (06:23)
[2024-02-14] MEDS: UMECLIDINIUM/VILANTEROL 62.5-25 MCG ELLIPTA 2 PUFF INHALATION (07:03)
[2024-02-14] MEDS: FUROSEMIDE INJ 40 MG/4 ML VIAL 20 MG IV PUSH (09:13)
[2024-02-14] MEDS: APIXABAN 5 MG TABLET PO (09:14)
[2024-02-14] MEDS: bisoproloL fumarate 5 MG TABLET PO (09:14)
[2024-02-14] MEDS: POTASSIUM CHLORIDE 10 MEQ ER TABLET PO (09:14)
[2024-02-14] MEDS: SPIRONOLACTONE 25 MG TABLET PO (09:14)
[2024-02-14] MEDS: ALPRAZolam (*CRX) 0.5 MG TABLET PO (09:27)
--- NOTE | 2024-02-14 12:58 | P.DS_ITS ---
DS: Admitting Diagnosis Discharge Date 02/14/24 Admitting Diagnosis SOB DS: Discharge Diagnosis Discharge Diagnosis (1) Hypoxia: Code(s): R09.02 - Hypoxemia Status: Acute (2) COPD (chronic obstructive pulmonary disease): Code(s): J44.9 - Chronic obstructive pulmonary disease, unspecified Status: Acute DS: Summary Hospital Course Hospital Course: 58-year-old female with a significant past medical history of COPD, hyperlipidemia, Hx of Herpes, CVA, pericarditis, coronary artery disease, hypertension, [place] x2, GI bleed, partial hysterectomy, and stent to the right kidney, current every day smoker, marijuana abuse who presented to the hospital with shortness of breath. Patient noted she has been having SOB since October with multiple hospital admissions. Noted she has not been on her lasix as she has ran out and noted abd swelling which is her sign of CHF exacerbation. Denies any vomiting, abd pain, diarrhea, no chest pain and no dysuria. Patient on 2 liters at baseline. ER eval notable [place] 79, RR 18, saturating 96% on 4 liters. Labs notable WBC 20.4, Cr 0.7, Na 135. CTA chest No PE, Esophagitis and moderate emphysema. Patient was started on Lasix, bronchodilators and IV steroids. Today patient is back to baseline oxygen and she is on Prednisone at home. Patient advised to follow up with PCP to wean off Prednisone. Discharged on Budesonide. Patient was worried about her sheppard face appearance and weight around her tummy, which she attributed to CHF exacerbation. However i discussed with her that she does not have any leg edema on exam and no pulm edema on CT chest or pleural effusion, thus the features may be from steroid use. She was not happy about this information and enquired if i am a specialist like her electrical systems design engineer. I answered that i am a hospitalist trained in internal medicine and i offering what i think explains her condition, that definitely she is not in CHF exacerbation. She was upset and I got a call later that she left AMA. however since she was due for discharge anyways, i went ahead and discharged her with prescriptions. Discharged on Budesonide, referred to Pulmonology in 2 weeks. WIll follow up with Pulm for Roflumilast consideration Time Spent with Patient Time attestation: Total time spent providing and/or coordinating discharge services: Discharge Plan Discharge Attending physician on discharge: Chris Sr Discharging Clinician: Chris Sr Anticipated Discharge Date/Time: 02/14/24 12:54 Patient Disposition: Home, Self-Care Activity: as tolerated Diet: as tolerated Patient Instructions: Antibiotic Form Patient Language: Chinese Stand Alone Forms: General Discharge Information Follow-up/Referrals: UNKNOWN,DOCTOR [Primary Care Provider] - (F/u with PCP in 3-5 days ) Toma Katz MD [Physician] - (F/u with Pulm referral in 2 weeks) Discharge Medications: New budesonide 90 mcg/actuation aerosol powdr breath activated 1 inh inhalation Q12H 30 Days Qty: 1 1RF Continued albuterol sulfate 90 mcg/actuation HFA aerosol inhaler 1 inh inhalation Q4-6H PRN (Reason: shortness of breath or wheezing) Qty: 6.7 0RF doxycycline hyclate 100 mg tablet 100 mg PO BID Qty: 14 0RF potassium chloride 10 mEq tablet extended release 10 meq PO BID spironolactone 25 mg tablet 25 mg PO DAILY prednisone 50 mg tablet 40 mg PO DAILY furosemide 40 mg tablet 40 mg PO BID atorvastatin 20 mg tablet 20 mg PO HS bisoprolol fumarate 5 mg tablet 5 mg PO BID alprazolam 0.5 mg tablet 0.5 mg PO 0800,1200 Rx Instructions: Takes morning, noon, and bedtime alprazolam 0.5 mg tablet 0.5 mg PO HS Eliquis 5 mg tablet 5 mg PO Q12H Stiolto Respimat 2.5-2.5 mcg/actuation mist 2 puff INHALATION DAILY Date of admission: 02/13/24 10:17 Primary Care Provider: UNKNOWN,DOCTOR Admitting Provider: Chris Sr Attending physician on admission: Chris Sr Condition: Serious
== END 2024-02-14 12:49 | disposition left against medical advice (07) | DRG 140 ==
LOC: ANHED 10:17 → ANH3MEDSUR 11:26
PROVIDERS: Admitting Provider Internal Medicine; Emergency Provider Emergency Medicine; Visit Provider Internal Medicine
DX: J44.1 Chronic obstructive pulmonary disease with (acute) exacerbation (principal); J43.9 Emphysema, unspecified; I31.9 Disease of pericardium, unspecified; I11.0 Hypertensive heart disease with heart failure; I50.9 Heart failure, unspecified; I25.2 Old myocardial infarction; I25.10 Atherosclerotic heart disease of native coronary artery without angina pectoris; E78.5 Hyperlipidemia, unspecified; F41.9 Anxiety disorder, unspecified; F17.210 Nicotine dependence, cigarettes, uncomplicated; F12.10 Cannabis abuse, uncomplicated; Z86.19 Personal history of other infectious and parasitic diseases; Z86.73 Personal history of transient ischemic attack (TIA), and cerebral infarction without residual deficits; Z95.828 Presence of other vascular implants and grafts; Z79.01 Long term (current) use of anticoagulants; Z20.822 Contact with and (suspected) exposure to COVID-19
CPT/HCPCS: 36415; 80053; 85025; 87637; 94640; 96374; 99285; A9270; J1940; J2919

== ENCOUNTER 2024-02-16 21:21 | Emergency (ER) | payer MEDICAID, SELFPAY ==
--- NOTE | ~2024-02-16 | XR_ITS ---
XR chest 2V Ordering provider: Billy Cruz MD History: 59 years Female with . sob fluid retention hx chf copd hx of mi . Comparison: February 12, 2024 FINDINGS: MEDIASTINUM: The cardiac silhouette is not enlarged. LUNGS: No infiltrates, effusions or pneumothorax. Emphysematous bulla in the right upper lobe. OTHER: No free air under the diaphragm. Degenerative spine. IMPRESSION: No acute cardiopulmonary pathology. Reviewed, dictated and finalized at location A. 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
--- NOTE | 2024-02-16 21:26 | ECG_ITS ---
Test Date: 2024-02-16 21:59:38 Measurements Intervals [place] Rate: 107 P: 70 [place]: 144 QRS: 40 QRSD: 96 T: 46 QT: 293 QTc: 392 Interpretive Statements SINUS TACHYCARDIA POSSIBLE ANTERIOR MYOCARDIAL INFARCTION , PROBABLY OLD [30 ms Q WAVE IN V3/V4, OR R < 0.2 mV IN V4] ABNORMAL RHYTHM ECG Compared to ECG 02/12/2024 22:10:08 Myocardial infarct finding now present Sinus rhythm no longer present T-wave abnormality no longer present Electronically Signed On 02-17-2024 22:53:00 CROP SPECIALIST by Jam Flores M.D.
[2024-02-16 21:53] VITALS: BP 125/89; PULSE 111; RESP 16; TEMP 36.4; O2SAT 92
[2024-02-16 22:17] LABS: Basophils Absolute Auto 0.1 K/mm3 (0.0-0.1); Basophils Percent Auto 0.4 % (0.2-1.2); Eosinophils Percent Auto 0.2 % (0-4.4); Hematocrit 48.6 % (37.0-47.0); Immature Granulocyte Absolute 0.25 K/mm3 (0.00-0.031); Immature Granulocyte Percent A 1.5 % (0-0.5); Lymphocytes Absolute Auto 4.22 K/mm3 (0.9-3.2); Lymphocytes Percent Auto 25.5 % (18.3-44.2); Mean Corpuscular HGB Conc 32.9 g/dl (32-36); Mean Corpuscular Hemoglobin 32.4 pg (26-34); Mean Corpuscular Volume 98.4 fl (80-100); Mean Platelet Volume 9.7 fl (7.4-10.4); Monocytes Percent Auto 5.8 % (2.6-8.5); Neutrophils Percent Auto 66.6 % (45.5-73.1); Platelet Count Result 325 k/mm3 (150-375); Red Blood Count 4.94 M/mm3 (4.2-5.4); Red Cell Distribution Width 14.5 % (11.5-14.5); White Blood Count 16.5 K/mm3 (4.5-10.0)
[2024-02-16 22:32] LABS: Alanine Aminotransferase 24 U/L (6-35); Albumin Level 3.9 g/dL (3.5-5.1); Alkaline Phosphatase 72 U/L (38-126); Anion Gap 2 mmol/L (4-12); Aspartate Amino Transferase 20 U/L (14-36); Bilirubin,Total 0.5 mg/dL (0.2-1.3); Blood Urea Nitrogen 25 mg/dL (7-17); Calcium 8.3 mg/dL (8.4-10.2); Carbon Dioxide 33 mmol/L (22-30); Chloride 102 mmol/L (98-107); Estimated CRCL calculation 49 ml/min; Estimated Glomerular Filt Rate 57; Glucose 113 mg/dL (65-110); Potassium 3.7 mmol/L (3.4-5.0); Sodium 137 mmol/L (137-145)
--- NOTE | 2024-02-17 05:39 | PC.NURSE ---
called for vitals, no answer
== END 2024-02-17 05:47 | disposition left against medical advice (07) ==
LOC: ANHED 02-17 05:43
PROVIDERS: Emergency Provider Emergency Medicine
DX: R06.02 Shortness of breath (principal)
CPT/HCPCS: 36415; 71046; 80053; 85025; 93005; 99199